=== PATIENT | female | born 1960 | race Caucasian/White ===

== ENCOUNTER 2019-02-07 09:17 | Day surgery (SDC) | payer BC ==
[~2019-02-07 09:17] MED LIST: ASPIRIN 325 MG TAB PO STA; SODIUM CHLORIDE 0.9% 1,000 ML in EMPTY BAG 1 BAG IV ONE; ceFAZolin IN SWFI 2 GM/20 ML SYRINGE IVP ONE
[2019-02-07] MEDS ORDERED: MIDAZOLAM 2 MG/2 ML VIAL IV ONE ×2 (10:46→11:02)
[2019-02-07] MEDS: fentaNYL (PF) 50 MCG/ML 2 ML AMP IV ONE ×2 (10:46→11:02)
[2019-02-07] MEDS ORDERED: LIDOCAINE 1% INJ 10MG/ML (20 ML MDV) SQ ONE (11:04)
[2019-02-07] MEDS ORDERED: HEPARIN SODIUM 1,000 UN/ML (10ML VL) IV ONE (11:13)
[2019-02-07] MEDS ORDERED: ALPRAZolam 0.25 MG TAB PO PRN (11:42)
[2019-02-07] MEDS ORDERED: SODIUM CHLORIDE 0.9% 1,000 ML IV SCH (11:45)
[2019-02-07] MEDS ORDERED: CLOPIDOGREL 75 MG TAB PO ONE (11:45)
[2019-02-07] MEDS ORDERED: IOPAMIDOL-250 50ML BTL IV ONE (11:46)
[2019-02-07] MEDS ORDERED: hydrALAZINE HCL 20 MG/ML 1 ML VIAL ONE (12:15)
--- NOTE | 2019-02-07 12:16 | LTR ---
DATE OF SERVICE: 02/07/2019 RE: Jostin Yvette Dear Dr. Kahn; Ms. Yvette Frankel underwent successful percutaneous closure of patent foramen ovale after she was diagnosed recently with TIA and was found to have PFO with [id number] shunt. Thank you for allowing us to participate in her care and please do not hesitate to call if you have any question or concerns. Sincerely, MD TIA Smith / VITO: [id number] /
[2019-02-07] MEDS ORDERED: hydrALAZINE HCL 20 MG/ML 1 ML VIAL IVP PRN (12:19)
--- NOTE | 2019-02-07 12:30 | PTCA ---
PERCUTANEOUSTRANS CORORONARY ANGIOGRAPHY STRUCTURAL HEART DISEASE REPORT DATE OF SERVICE: February 07, 2019 PERFORMING PHYSICIAN: Abdoul Mancini MD, management professor. PROCEDURE PERFORMED: 1. Intracardiac echocardiogram imaging. 2. Successful percutaneous closure of patent foramen ovale using 25 mm Amplatzer PFO occluder with excellent results and without any residual shunt. 3. Right atrial angiogram. INDICATION: This is a 59-year-old female patient who sees Dr. Bunch in the office as an outpatient. The patient recently was diagnosed with TIA and underwent transesophageal echocardiogram and that revealed small patent foramen ovale with [id number] shunt. Because of that, she was brought today to undergo a PFO closure. APPROACH: Right common femoral vein. COMPLICATION: None. LEVEL OF SEDATION: Moderate with sedation length of 40 minutes. PROCEDURE DESCRIPTION: After obtaining an informed consent, the patient was brought to the cardiac lab head. The right common femoral vein was cannulated x2. I did place two 8-Indonesian sheaths in the right common femoral vein. At that point, anticoagulation was initiated using heparin and the patient was given 6000 units of heparin IV. After that and under fluoroscopy guidance, I did advance the intracardiac echocardiogram probe. I did intracardiac echocardiogram imaging where I did start with the home view and interrogate the tricuspid valve as well as I interrogate the interatrial septum when I was able to identified the patent foramen ovale with right-to- left shunt and I measured the diameter of it, which was about 15 mm. At that point I did cross the patent foramen ovale using multipurpose catheter with 0.035 J-wire. The J-wire was advanced to the left upper pulmonary vein. After that I did exchange my 0.035 J wire into 0.035 stiff Amplatzer wire using multipurpose catheter. Subsequently, and after prepping the long sheath, I did exchange my 11 cm 8-Indonesian sheath into the Shuttle sheath. I did cross interatrial septum. After that, I did pull the dilator and wire out. Subsequently I did prep the 25 mm PFO Amplatzer occluder where initially it was attached to the cable, then it was loaded. After that, I did advance the Amplatzer device to the left atrium where the left atrial occluder was deployed first and subsequently, the right atrial occluder. Before I the device, I did some pulling and pushing on the cable to make sure that the device was stable enough. It was stable enough. Then I did color-flow to make sure there is no residual shunt. After that, we made sure that there is no pinch on the SVC. The procedure at that point was completed without any complication. Before I did complete the procedure, I did right atrial angiogram through the long sheath. Procedure at that point was completed after I did exchange my long sheath into short sheath. POSTPROCEDURE MANAGEMENT: 1. Dual antiplatelet therapy for 1 month. 2. Aspirin for 6 months. 3. Echocardiogram in 1 week, 1 month, and 6 months and 1 year as well. 4. Follow up with Dr. Bunch. MMSCOTTL / CLEMENTINEN: [id number] /
[2019-02-07] MEDS: ACETAMINOPHEN TAB 325 MG TAB PO PRN ×2 (16:18→21:46)
[2019-02-07 18:02] VITALS: BMI 33.5
[2019-02-07] MEDS ORDERED: DOCUSATE 100 MG CAP PO PRN (18:10)
[2019-02-07] MEDS: SYMBICORT 160-4.5 MCG INHALER INHALATION SCH (19:19)
[2019-02-07] MEDS: METOPROLOL TARTRATE 25 MG TAB PO SCH (21:46)
[2019-02-08 07:16] LABS: Basophils % (A) 0 %; Eosinophils # (A) 0.1 k/uL (0-0.7); Eosinophils % (A) 2 %; HCT 39.5 % (34.0-46.0); HGB 12.9 gm/dL (11.4-16.0); Lymphocytes # (A) 1.4 k/uL (1.0-4.8); Lymphocytes % (A) 24 %; MCH 28.3 pg (25.0-35.0); MCHC 32.6 g/dL (31.0-37.0); MCV 86.8 fL (80.0-100.0); Mean Platelet Volume 7.5; Monocytes # (A) 0.4 k/uL (0-1.0); Monocytes % (A) 6 %; Neutrophils # (A) 3.8 k/uL (1.3-7.7); Neutrophils % (A) 65 %; Platelet Count 254 k/uL (150-450); RBC 4.55 m/uL (3.80-5.40); WBC 5.9 k/uL (3.8-10.6)
[2019-02-08 07:39] LABS: Anion Gap 6 mmol/L; Blood Urea Nitrogen 14 mg/dL (7-17); Calcium 9.7 mg/dL (8.4-10.2); Carbon Dioxide 24 mmol/L (22-30); Chloride 110 mmol/L (98-107); Glucose 102 mg/dL (74-99); Potassium 4.1 mmol/L (3.5-5.1); Sodium 140 mmol/L (137-145)
--- NOTE | 2019-02-08 07:39 | XR ---
EXAMINATION TYPE: XR chest 2V DATE OF EXAM: 02/08/2019 COMPARISON: NONE HISTORY: COPD. ASD/PFO placement. TECHNIQUE: Frontal and lateral views of the chest are obtained. FINDINGS: Overlying EKG leads are seen. There is chronic parenchymal change without suspicious focal air space opacity, pleural effusion, or pneumothorax seen. The cardiac silhouette size is within nor mal limits. Atrial septal closure device is noted projecting over right posterior aspect of heart. T he osseous structures are intact. IMPRESSION: No acute cardiopulmonary process.
[2019-02-08 08:22] VITALS: BP 141/85; PULSE 87; RESP 18; TEMP 98.2
[2019-02-08] MEDS: SYMBICORT 160-4.5 MCG INHALER INHALATION SCH (08:49)
[2019-02-08] MEDS ORDERED: CLOPIDOGREL 75 MG TAB PO SCH (09:00)
[2019-02-08] MEDS ORDERED: MAGNESIUM OXIDE 400 MG TAB PO SCH (09:00)
[2019-02-08] MEDS ORDERED: FAMOTIDINE 20 MG TAB PO SCH (09:00)
[2019-02-08] MEDS ORDERED: NON-FORMULARY DRUG (Aspirin [Adult Low Dose Aspirin Ec] 81 MG) PO SCH (09:00)
[2019-02-08] MEDS ORDERED: ASPIRIN 325 MG TAB PO SCH (09:00)
[2019-02-08] MEDS ORDERED: TUMERIC PO SCH (09:00)
[2019-02-08] MEDS ORDERED: MONTELUKAST 10 MG TAB PO SCH (09:00)
[2019-02-08] MEDS ORDERED: ATORVASTATIN 20 MG TAB PO SCH (09:00)
[2019-02-08] MEDS: METOPROLOL TARTRATE 25 MG TAB PO SCH (09:10)
--- NOTE | 2019-02-08 11:03 | ECHOF ---
Referral Reason:Post ASD/PFO Insertion MEASUREMENTS -------- HEIGHT: 162.6 cm WEIGHT: 89.8 kg BP: 118/55 RVIDd: 3.5 cm (< 3.3) IVSd: 1.2 cm (0.6 - 1.1) LVIDd: 4.1 cm (3.9 - 5.3) LVPWd: 1.1 cm (0.6 - 1.1) IVSs: 1.4 cm LVIDs: 3.1 cm LVPWs: 1.4 cm LA Diam: 3.3 cm (2.7 - 3.8) MV EXCURSION: 20.130 mm (> 18.000) MV EF SLOPE: 71 mm/s (70 - 150) EPSS: 1.1 cm MV E Home: 0.68 m/s MV DecT: 254 ms MV A Home: 0.79 m/s MV E/A Ratio: 0.86 RAP: 5.00 mmHg RVSP: 26.52 mmHg FINDINGS -------- Sinus rhythm. This was a technically adequate study. The left ventricular size is normal. There is mild concentric left ventricular hypertrophy. Overa ll left ventricular systolic function is normal with, an EF between 55 - 60 %. The right ventricle is normal in size. The left atrial size is normal. The right atrial size is normal. There is an interatrial closure device in place without evidence of shunt. There is mild aortic valve sclerosis. There is no evidence of aortic regurgitation. Mild mitral annular calcification present. No mitral regurgitation. Mild tricuspid regurgitation present. There is no evidence of pulmonary hypertension. The right v entricular systolic pressure, as measured by Doppler, is 26.52mmHg. There is no pulmonic regurgitation present. The aortic root size is normal. There is no pericardial effusion. CONCLUSIONS -------- 1. The left ventricular size is normal. 2. There is mild concentric left ventricular hypertrophy. 3. Overall left ventricular systolic function is normal with, an EF between 55 - 60 %. 4. The right ventricle is normal in size. 5. The left atrial size is normal. 6. The right atrial size is normal. 7. There is an interatrial closure device in place without evidence of shunt. 8. There is mild aortic valve sclerosis. 9. Mild mitral annular calcification present. 10. No mitral regurgitation. 11. Mild tricuspid regurgitation present. 12. There is no evidence of pulmonary hypertension. 13. The right ventricular systolic pressure, as measured by Doppler, is 26.52mmHg. 14. There is no pulmonic regurgitation present. 15. The aortic root size is normal. 16. There is no pericardial effusion. PRIVATE BRANCH EXCHANGE INSTALLER: Kady Casillas RDCS
[2019-02-08] MEDS ORDERED: CHOLECALCIFEROL 1,000 UNIT TAB PO SCH (12:00)
--- NOTE | 2019-02-09 00:17 | DS ---
DISCHARGE SUMMARY . DATE OF ADMISSION: February 07, 2019 DATE OF DISCHARGE: February 08, 2019 BRIEF HISTORY: This is a very pleasant 59-year-old female patient who underwent yesterday successful percutaneous closure of patent foramen ovale using 25 mm Amplatzer septal occluder with an excellent angiographic results and without any complication. On follow up with her today, she is asymptomatic. The right groin is soft and nontender and without any bruises. The patient is going to be discharged home on dual anti-platelet therapy and I will follow up with her new in the office. MMODL / IJN: [id number] /
== END 2019-02-08 10:20 | disposition home or self-care (01) ==
LOC: CATHCVL 09:17 → 3SCARD 11:43 → CATHCVL 02-08 10:20
PROVIDERS: ATTEND Internal Medicine Interventional Cardiology
DX: Q21.1 Atrial septal defect (principal); I08.3 Combined rheumatic disorders of mitral, aortic and tricuspid valves; I47.1 Supraventricular tachycardia; Z86.73 Personal history of transient ischemic attack (TIA), and cerebral infarction without residual deficits; D86.9 Sarcoidosis, unspecified; Z72.0 Tobacco use; Z79.82 Long term (current) use of aspirin; Z79.51 Long term (current) use of inhaled steroids; Z79.52 Long term (current) use of systemic steroids; Z79.899 Other long term (current) drug therapy
CPT/HCPCS: 94640; 93306; 93581; 93662; 85347; 86900; 86901; 80048; 85025; 86850; 71046; C1769 ×4; C1894; C1817; C1759; J2250; J0360; J2001; J3010; J1644; J0690; Q9966

== ENCOUNTER → 2021-01-22 | Outpatient (CLI) | payer BC ==
[2021-01-22 14:41] LABS: HCT 39.2 % (34.0-46.0); HGB 13.8 gm/dL (11.4-16.0); MCH 30.7 pg (25.0-35.0); MCHC 35.1 g/dL (31.0-37.0); MCV 87.3 fL (80.0-100.0); Mean Platelet Volume 8.4; Platelet Count 225 k/uL (150-450); RBC 4.48 m/uL (3.80-5.40); RDW 12.7 % (11.5-15.5); WBC 5.9 k/uL (3.8-10.6)
[2021-01-22 14:57] LABS: INR 1.1 (<1.2); Partial Thromboplastin Time 23.4 sec (22.0-30.0); Prothrombin Time 11.1 sec (9.0-12.0)
[2021-01-22 14:58] LABS: ALT 24 U/L (4-34); AST 23 U/L (14-36); African American GFR (CKD) >90 (>60 ml/min/1.73 sqM); Albumin 4.9 g/dL (3.5-5.0); Alkaline Phosphatase 105 U/L (38-126); Anion Gap 9 mmol/L; Blood Urea Nitrogen 18 mg/dL (7-17); Calcium 10.3 mg/dL (8.4-10.2); Carbon Dioxide 28 mmol/L (22-30); Chloride 102 mmol/L (98-107); Glucose 103 mg/dL (74-99); Non-African American GFR(CKD) 86 (>60 ml/min/1.73 sqM); Potassium 4.7 mmol/L (3.5-5.1); Sodium 139 mmol/L (137-145); Total Bilirubin 0.4 mg/dL (0.2-1.3); Total Protein 7.5 g/dL (6.3-8.2)
[2021-01-22 15:07] LABS: Appearance,Urine Clear (Clear); Bilirubin,Urine Negative (Negative); Blood,Urine Small (Negative); Color,Urine Yellow; Glucose,Urine (UA) Negative (Negative); Ketones,Urine Negative (Negative); Leukocyte Esterase,Urine Large (Negative); Nitrite,Urine Negative (Negative); Protein,Urine Negative (Negative); RBC,Urine 3 /hpf (0-5); Specific Gravity,Urine 1.019 (1.001-1.035); Urobilinogen,Urine <2.0 mg/dL (<2.0); WBC,Urine 21 /hpf (0-5)
== END | disposition home or self-care (01) ==
LOC: LABPAT 14:13
PROVIDERS: ATTEND Orthopaedic Surgery
DX: Z01.812 Encounter for preprocedural laboratory examination (principal)
CPT/HCPCS: 36415; 80053; 81001; 85027; 85610; 85730; 87070

== ENCOUNTER 2021-02-02 07:38 | Day surgery (SDC) | payer BC ==
[2021-01-26 16:04] VITALS: BMI 34.3
[~2021-02-02 07:38] MED LIST changes: +ACETAMINOPHEN TAB 500 MG TAB PO PRN; -ASPIRIN 325 MG TAB PO STA; +DEXAMETHASONE SOD PHOSPHATE 4 MG/ML 1 ML VIAL IV ONE; +GABAPENTIN 300 MG CAP PO PRN; +HYDROmorphone 0.5 MG/0.5 ML SYRINGE IVP PRN; +LIDOCAINE 1% (10MG/ML) FOR IV START INTRADERMA PRN; +MELOXICAM 7.5 MG TAB PO PRN; +MIDAZOLAM 2 MG/2 ML VIAL IV PRN; +ONDANSETRON 4 MG/2 ML VIAL IVP ONE; +ROPIVACAINE/EPI/CLONIDINE/KET 50 ML SYRINGE MISCELLANE PRN; -SODIUM CHLORIDE 0.9% 1,000 ML in EMPTY BAG 1 BAG IV ONE; +TRANEXAMIC ACID 1,000 MG in SODIUM CHLORIDE 0.9% 100 ML IVPB PRN; -ceFAZolin IN SWFI 2 GM/20 ML SYRINGE IVP ONE
[2021-02-02] MEDS ORDERED: LACTATED RINGERS 1,000 ML IV ONE ×4 (08:10→11:01)
[2021-02-02] MEDS ORDERED: NALOXONE 0.4 MG/ML 1 ML VIAL IV PRN (08:34)
[2021-02-02] MEDS ORDERED: ONDANSETRON 4 MG/2 ML VIAL IVP PRN (08:34)
[2021-02-02] MEDS ORDERED: hydrOXYzine pamoate 25 MG CAP PO PRN (08:34)
[2021-02-02] MEDS ORDERED: HYDROmorphone 0.2 MG/1 ML SYRINGE IVP PRN (08:34)
[2021-02-02] MEDS ORDERED: HYDROmorphone 0.5 MG/0.5 ML SYRINGE IVP PRN (08:34)
[2021-02-02] MEDS ORDERED: MAGNESIUM HYDROXIDE 2,400 MG/10 ML CUP PO PRN (08:34)
[2021-02-02] MEDS ORDERED: HYDROmorphone 1 MG/ML 1 ML SYRINGE IVP PRN (08:34)
[2021-02-02] MEDS ORDERED: HYDROcodone/APAP 7.5-325MG 1 EACH TAB PO PRN (08:37)
[2021-02-02] MEDS ORDERED: fentaNYL (PF) 50 MCG/ML 2 ML AMP ONE (08:57)
[2021-02-02] MEDS ORDERED: PROPOFOL 10 MG/ML 20 ML VIAL IV ONE (08:57)
[2021-02-02] MEDS ORDERED: HEPARIN SODIUM,PORCINE 10,000 UNIT/ML 1 ML VIAL ONE (08:57)
[2021-02-02] MEDS ORDERED: SODIUM CHLORIDE 0.9% 100 ML BAG ONE (08:57)
[2021-02-02] MEDS ORDERED: SODIUM CHLORIDE 0.9% IRRIG 1,000 ML BTL IRRIGATION ONE (08:57)
[2021-02-02] MEDS ORDERED: PHENYLEPHRINE-0.9% NACL SYG 1,000 MCG/10 ML SYRINGE ONE (08:57)
[2021-02-02] MEDS ORDERED: MIDAZOLAM 2 MG/2 ML VIAL ONE (08:57)
[2021-02-02] MEDS ORDERED: TRANEXAMIC ACID 1,000 MG/10 ML VIAL ONE (08:57)
--- NOTE | 2021-02-02 10:16 | P.OP ---
Date of Procedure: 02/02/21 Preoperative Diagnosis: Severe osteoarthritis left hip Postoperative Diagnosis: Severe osteoarthritis left hip Procedure(s) Performed: Left total hip arthroplasty with a direct anterior approach Implants: [employer] Polarstem standard size 3 [employer] R3, 3 hole hemispherical acetabular shell, 52 mm [employer] Reflection 6.5 mm cancellus screw, 20 mm 2 [employer] R3, XLPE 20 acetabular liner [employer]hew Oxinium femoral head 36 m, -3 All components were press-fit. The articulation is Oxinium on polyethylene. Anesthesia: spinal Surgeon: Reyes Flores Marketing Project Specialist #1: Ct Lira Estimated Blood Loss (ml): 100 Pathology: other (Femoral head) Condition: stable Disposition: PACU Indications for Procedure: After failure of conservative treatment we discussed the surgical and nonsurgical treatment options at length. Patient wishes to proceed with a total hip arthroplasty with a direct anterior approach. Complications specific to this procedure were discussed at length, including but not limited to infection, leg length discrepancy, dislocation, nerve injury, and fracture. Covid-19 was also discussed at length with the patient, and they are aware of the current policies and procedures. The patient was given the option of delaying surgery, but they elect to proceed knowing these risks. Patient is aware of all these complications and informed consent was obtained Operative Findings: The operative findings are consistent with severe osteoarthritis of the left hip Description of Procedure: Patient was seen and evaluated in the preoperative area and the consent was reviewed. The operative site was marked with a skin marker. The patient was then brought to the operating room and given preoperative antibiotics i ntravenously. 1 g of Tranexamic acid was also given intravenously. A spinal anesthetic was administered by the anesthesia department. The patient was then placed on the Concrete table with the bony prominences well-padded. The hip area was then prepped with a ChloraPrep solution and draped in the usual sterile fashion. A universal timeout was then performed, which confirmed the patient's name, s urgical site, ALLERGIES, and procedure being performed on the consent. Next the incision site was located at 1 cm distal to the anterior superior iliac spine along the flexion crease of the hip. The skin and subcutaneous tissues were sharply incised. Incision was carefully dissected down to the fascia overlying the tensor fascia terrance muscle. This fascia was then incised in line with the incision. Care was taken to stay laterally in order to avoid injuring the lateral femoral cutaneous nerve. Next, using blunt finger dissection, the tensor fascia terrance muscle was dissected off its investing fascia. The muscle was then carefully retracted laterally with a cobra retractor over the lateral neck of the femur. Next, the circumflex vessels were identified and cauterized using the AquaMantis device. The anterior hip capsule was then exposed. The capsule was then opened and an inverted T fashion. Cobra retractors were then placed intracapsularly. The retractors were maintained intracapsular throughout the procedure. The proximal femur was then visualized. A small amount of traction was placed on the leg. The femoral neck was then osteotomized appropriate level above the lesser trochanter. A small wedge of bone was then removed from the remaining femoral head. Next, using a corkscrew the femoral head was removed from the acetabulum. On gross visual inspection, the femoral head had complete loss of articular cartilage and multiple periarticular osteophytes. The femoral head was then measured. Attention was then turned to the acetabulum. The acetabulum was exposed and any remaining labrum was excised. Sequential reaming of the acetabulum was performed using fluoroscopic guidance until there was a good bed of bleeding cancellus bone. When the appropriate size was reached, a trial was then placed. The position and fit of the trial was checked with fluoroscopy. The trial was then removed. Then, using fluoroscopic guidance, the final implant was impacted at 20 of anteversion and 40 of abduction, and fully seated in the acetabulum. 2 screws were then placed in the acetabulum. Again fluoroscopy was used to check position of the screws. Next, the liner was then impacted, with a 20 elevated liner located in the anterior superior quadrant. Component locking was confirmed. Attention was then directed to the femur. With the aid of the Concrete table, the femur was externally rotated to approximately 130, extended, and adducted under the opposite leg. A side hook was then placed under the proximal femur, and the side hook elevator was used to elevate the proximal femur while releasing the capsule. Retractors were then placed. A capsular release was performed, as well as a release of the conjoined tendon, which afforded excellent visualizati on of the proximal femur. Next, a box osteotome was used to lateralize the proximal femur. A fretted instrument maker hand was then used to locate the femoral canal. Sequential broaching was then performed with appropriate size which afforded excellent fixation in the proximal femur. A trial was then placed with appropriate head and neck, and the hip was gently reduced with the aid of the Concrete table. Fluoroscopy was then used to check position of the components, as well as to ensure equal leg lengths. The hip was then gently dislocated and the trials were then removed. Final implants were then impacted and the hip was again reduced. Final fluoroscopic x-rays confirmed that the components were in anatomic position, as well as equal leg lengths. The hip was also taken through range of motion, and found to be stable. The hip was then copiously irrigated with antibiotic solution with pulsatile lavage. The hip was then irrigated with Irrisept solution. The soft tissues were then injected with a ropivacaine solution, which consisted of 246.25 mg of ropivacaine, 0.5 mg of epinephrine, 30 mg of Toradol, 80 g of clonidine, and 48.45 mL of sterile water, for a total of 100 mL of fluid injected. A second dose of 1 g of Tranexamic acid was also given intravenously. Any blood collected by Cell Saver was then returned to the patient at this time. The fascia was then closed with 2-0 strata fix suture. The subcutaneous tissue was closed with 3-0 Vicryl. The subcuticular tissue was closed with 3-0 strata fix suture. The skin was then closed with Exofin skin glue. After the glue and dried, and Optifoam silver impregnated dressing was applied. The patient was then transferred to the recovery room in stable condition. The retail assistant store manager SANDRA Montes was required due to the complexity of surgery, and the need for skilled surgical brace maker for positioning, draping, exposure, retraction, and closure of the wound.
[2021-02-02] MEDS ORDERED: diphenhydrAMINE 50 MG/ML 1 ML VIAL IVP ONE (10:56)
--- NOTE | 2021-02-02 11:01 | FL ---
EXAMINATION TYPE: FL guidance operating room, XR Hip Limited LT DATE OF EXAM: 02/02/2021 CLINICAL HISTORY: Left hip pain and osteoarthritis. TECHNIQUE: Fluoroscopy. Intraoperative limited views left hip. COMPARISON: None. FINDINGS: Fluoroscopic guidance was provided during left hip replacement procedure performed by Dr. Flores. A total of 25 seconds of fluoroscopic time was utilized during the procedure and 2 spot im ages was acquired. Intraoperative images obtained show metallic hardware from total left hip arthroplasty satisfactory i n position on frontal projection. IMPRESSION: As Above.
--- NOTE | 2021-02-02 11:37 | XR ---
EXAMINATION TYPE: XR Hip Limited LT DATE OF EXAM: 02/02/2021 CLINICAL HISTORY: Left hip pain and osteoarthritis. TECHNIQUE: Single AP portable view of left hip is obtained immediately postoperatively. COMPARISON: None. FINDINGS: Metallic hardware from left hip arthroplasty is seen and appears satisfactory in alignment and position. There is evidence of recent surgery with subcutaneous gas noted laterally. IMPRESSION: Metallic hardware from left hip arthroplasty is satisfactory in position.
[2021-02-02 12:15] VITALS: RESP 18
[2021-02-02] MEDS: SODIUM CHLORIDE 0.9% 1,000 ML IV SCH (12:34)
[2021-02-02] MEDS: LACTATED RINGERS 1,000 ML IV SCH (14:28)
[2021-02-02] MEDS ORDERED: ALPRAZolam 0.25 MG TAB PO PRN (15:09)
[2021-02-02] MEDS ORDERED: ALBUTEROL HFA INHALER INHALATION PRN (15:09)
[2021-02-02] MEDS ORDERED: CYCLOBENZAPRINE 5 MG TAB PO PRN (15:09)
[2021-02-02] MEDS ORDERED: ALBUTEROL NEBULIZED 2.5 MG/3 ML INHALATION PRN (15:09)
[2021-02-02] MEDS: SYMBICORT 160-4.5 MCG INHALER INHALATION SCH (16:12)
[2021-02-02] MEDS: HYDROcodone/APAP 7.5-325MG 1 EACH TAB PO PRN (17:18)
--- NOTE | 2021-02-02 20:59 | P.CONS ---
History of Present Illness - Reason for Consult Consult date: 02/02/21 medical management Requesting physician: Reyes Flores - History of Present Illness This is a pleasant 60 [address] Kahn with underlying history of asthma, copd gerd tia Htpertension, Mi in past with svt, admitted to the service of dr Flores for eletive left hip arthroplasty on 02/02/2021. she di well postoperatively without any significant problems, vitals are stable no nausea or chest pain or palpitation. she follows with cardiology for dvt no current symptomatology. post op pain management with opiates, and currently on gabapentin chronically Review of Systems Constitutional: Reports as per HPI, Denies anorexia, Denies chills, Denies chronic headaches, Denies chronic pain, Denies daytime sleepiness, Denies fatigue, Denies fever, Denies lethargy, Denies malaise, Denies night sweats, Denies poor appetite, Denies sweats, Denies weakness, Denies weight gain, Denies weight loss Ears, nose, mouth and throat: Reports as per HPI, Denies ant. neck pain, Denies bleeding gums, Denies dental pain, Denies dysphagia, Denies epistaxis, Denies headache, Denies hoarseness, Denies mouth pain, Denies nasal congestion, Denies nasal discharge, Denies neck fullness/pressure, Denies neck lump, Denies nose pain, Denies odynophagia, Denies post-nasal drip, Denies sinus pain, Denies sinus pressure, Denies swelling in mouth, Denies swelling in throat, Denies sore throat, Denies vertigo, Denies voice changes Cardiovascular: Reports as per HPI Respiratory: Reports as per HPI, Denies congestion, Denies cough, Denies cough with sputum, Denies dyspnea, Denies excessive sputum, Denies hemoptysis, Denies home oxygen, Denies pain, Denies pain on inspiration, Denies pleurisy, Denies respiratory infections, Denies sleep apnea, Denies snoring, Denies wheezing Gastrointestinal: Reports as per HPI, Denies abdominal pain, Denies belching, Denies bloating, Denies BRBPR, Denies change in bowel habits, Denies coffee ground emesis, Denies constipation, Denies diarrhea, Denies dyspepsia, Denies early satiety, Denies excessive gas, Denies heartburn, Denies hematemesis, Denies hematochezia, Denies indigestion, Denies jaundice, Denies lactose intolerance, Denies loss of appetite, Denies melena, Denies nausea, Denies vomiting Genitourinary: Reports as per HPI, Denies abnormal vaginal bleeding, Denies decreased libido, Denies difficulty conceiving, Denies difficulty voiding, Denies dysmenorrhea, Denies dyspareunia, Denies dysuria, Denies flank pain, Denies genital sores, Denies hematuria, Denies hot flashes, Denies incomplete emptying, Denies kidney stones, Denies menorrhagia, Denies mixed incontinence, Denies nocturia, Denies pelvic pain, Denies post void dribbling, Denies , Denies prolapse symptoms, Denies stress incontinence, Denies urge incontinence, Denies urgency, Denies urinary frequency, Denies vaginal disc harge, Denies vaginal dryness, Denies vaginal itching, Denies vaginal odor Menstruation: Reports as per HPI Musculoskeletal: Reports as per HPI, Reports limitation of motion Integumentary: Denies lesions, Denies rash Neurological: Reports as per HPI, Reports balance difficulties, Reports gait dysfunction, Denies lack of coordination, Denies sensory deficit, Denies spasticity, Denies weakness Psychiatric: Reports as per HPI, Denies disorientation, Denies insomnia, Denies memory loss Past Medical History Past Medical History: Asthma, COPD, CVA/TIA, GERD/Reflux, Hyperlipidemia, Hypertension, Myocardial Infarction ([place]), Osteoarthritis (OA), Supraventricular Tachycardia (SVT) Additional Past Medical History / Comment(s): hx of TIA's-no residual effects, will have an issue w/SVT if gets anxious or worked up, pulmonary sarcoidosis, lots of allergies, currently on antibiotic for UTI Last Myocardial Infarction Date:: unknown History of Any Multi-Drug Resistant Organisms: None Reported Past Surgical History: Orthopedic Surgery Additional Past Surgical History / Comment(s): MUMTAZ, CAVAZOS'S NEUROMA REMOVED RT FOOT, SINUS SX, TUBES IN EARS, LUNG BX, PFO closure Past Anesthesia/Blood Transfusion Reactions: No Reported Reaction, Family History of Problems w/ Anesthesia Additional Past Anesthesia/Blood Transfusion Reaction / Comm: sister stopped breathing during a surgery-not sure why-she had lots of health problems per pt. Smoking Status: Former smoker - Past Family History Mother Family Medical History: Cancer, Osteoarthritis (OA) Additional Family Medical History / Comment(s): COLON Sister(s) Family Medical History: Deep Vein Thrombosis (DVT), Pulmonary Embolus Medications and Allergies Home Medications Medication Instructions Recorded Confirmed Type ALPRAZolam [Xanax] 0.25 mg PO BID PRN #0 02/01/19 01/26/21 History Aspirin [Adult Low Dose Aspirin EC] 81 mg PO DAILY 02/01/19 01/26/21 History Budesonide-Formot 160-4.5 Mcg 2 puff INHALATION BID 02/01/19 01/26/21 History [Symbicort 160-4.5 Mcg Inhaler] Cholecalciferol [Vitamin D3 (25 5,000 unit PO DAILY 02/01/19 01/26/21 History Mcg = 1000 Iu)] Famotidine [Pepcid] 20 mg PO DAILY #0 02/01/19 01/26/21 History Magnesium 200 mg PO DAILY #0 02/01/19 01/26/21 History Metoprolol Tartrate [Lopressor] 25 mg PO BID #0 02/01/19 01/26/21 History Montelukast [Singulair] 10 mg PO DAILY 02/01/19 01/26/21 History Atorvastatin [Lipitor] 20 mg PO Q48H 02/07/19 01/26/21 History Albuterol Nebulized [Ventolin 2.5 mg INHALATION Q6H PRN 01/26/21 01/26/21 History Nebulized] Albuterol Sulfate [Proair Hfa] 1 - 2 puff INHALATION Q6HR PRN 01/26/21 01/26/21 History Cholecalciferol [Vitamin D3 (25 25 mcg PO DAILY 01/26/21 01/26/21 History Mcg = 1000 Iu)] Cyclobenzaprine [Flexeril] 5 mg PO TID PRN 01/26/21 01/26/21 History Fluticasone Nasal [place] [Flonase 2 spr EA NOSTRIL DAILY 01/26/21 01/26/21 History Nasal [place]] Gabapentin [Neurontin] 100 mg PO DAILY 01/26/21 01/26/21 History HYDROcodone/APAP 5-325MG [[place] 1 tab PO Q6HR PRN 01/26/21 01/26/21 History 5-325] Multivitamins, Thera [Multivitamin 1 tab PO DAILY 01/26/21 01/26/21 History (formulary)] Nitrofurantoin Macrocrystal 100 mg PO BID 01/26/21 01/26/21 History [Nitrofurantoin] Zinc 50 mg PO DAILY 01/26/21 01/26/21 History Aspirin 325 mg PO BID #60 tab 02/02/21 Rx HYDROcodone/APAP 7.5-325MG [[place] 1 - 2 tab PO Q6H PRN #32 tab 02/02/21 Rx 7.5-325] Sennosides [Senokot] 2 tab PO DAILY PRN #60 tablet 02/02/21 Rx Allergies Allergy/AdvReac Type Severity Reaction Status Date / Time adhesive tape Allergy Rash/Hives Verified 01/26/21 15:52 Physical Exam Vitals: Vital Signs Temp Pulse Resp BP BP Pulse Ox 02/02/21 14:00 73 131/83 02/02/21 13:30 74 131/86 02/02/21 13:00 74 118/78 02/02/21 12:45 78 107/78 02/02/21 12:30 76 121/85 02/02/21 12:15 97.5 F L 71 18 124/76 98 02/02/21 11:30 70 16 109/64 99 02/02/21 11:15 66 16 116/63 98 02/02/21 11:00 73 16 106/57 95 02/02/21 10:45 68 14 108/57 96 02/02/21 10:38 96.9 F L 74 12 115/56 100 02/02/21 08:09 97.8 F 77 18 159/94 97 Intake and Output 02/02/21 02/02/21 02/02/21 06:59 14:59 22:59 Intake Total 2149 1130 Output Total 100 Balance 2049 113 Intake: IV 2150 Oral 1130 Output: Estimated Blood Loss 100 Other: Voiding Method Toilet Toilet # Voids 1 Weight 92.3 kg - Constitutional General appearance: average body habitus, cooperative, no acute distress - EENT Eyes: PERRLA, dentition normal ENT: hearing grossly normal, NA/AT, normal oropharynx - Neck Neck: normal ROM - Respiratory Respiratory: bilateral: CTA, negative: diminished, dullness, rales - Cardiovascular Rhythm: regular Heart sounds: normal: S1, S2 Abnormal Heart Sounds: no systolic murmur, no diastolic murmur, no rub, no S3 Gallop, no S4 Gallop, no click, no other - Gastrointestinal General gastrointestinal: normal bowel sounds, soft - Integumentary Integumentary: normal, normal turgor - Neurologic Neurologic: CNII-XII intact - Musculoskeletal Musculoskeletal: strength equal bilaterally Assessment and Plan Plan: 1. left total hip arthorplast on 02/02/2021, POD #0, currently doing weel, post op pain medications, symptomatic relief, gi and dvt prophylaxis, pulmonary toileting, and incentive spirometry use and education. albs reviewed fro, last 01/22/2021. PT/ OT , deviceces for safety during ambulation ,check am labs 2/ asthma COPD without exacerbation on proventil 3. TIA hx on lipitor metoprolol, meds continued 4. svt hx controlled, metorolol 5. hx CAD 81 mg daily lipitor and metoprlol. not on marina inhibition 6. Asthma, and allergies, on singulair prn proventil gi prophylasxis dvt prophylaxis on aspririn 325 mg bid post discharge Thank you dr Flores in allowing us to participate in the care of your patient, we will follow her course with you during this hospital stay
[2021-02-02] MEDS ORDERED: SENNOSIDES-DOCUSATE SODIUM 1 EACH TAB PO SCH (21:00)
[2021-02-02] MEDS: FAMOTIDINE 20 MG TAB PO SCH (21:21)
[2021-02-02] MEDS: METOPROLOL TARTRATE 25 MG TAB PO SCH (21:21)
[2021-02-02] MEDS: ASPIRIN 325 MG TAB PO SCH (21:21)
[2021-02-03] MEDS: SODIUM CHLORIDE 0.9% 1,000 ML IV SCH (01:00)
[2021-02-03 05:23] VITALS: BP 121/79; PULSE 76; TEMP 98.1
[2021-02-03] MEDS: LACTATED RINGERS 1,000 ML IV SCH (05:38)
[2021-02-03] MEDS: HYDROcodone/APAP 7.5-325MG 1 EACH TAB PO PRN (06:28)
[2021-02-03 06:46] LABS: Basophils % (A) 0 %; Eosinophils # (A) 0.1 k/uL (0-0.7); Eosinophils % (A) 1 %; HGB 12.5 gm/dL (11.4-16.0); Lymphocytes # (A) 1.1 k/uL (1.0-4.8); Lymphocytes % (A) 12 %; MCH 30.3 pg (25.0-35.0); MCHC 34.8 g/dL (31.0-37.0); MCV 86.9 fL (80.0-100.0); Mean Platelet Volume 8.5; Monocytes # (A) 1.1 k/uL (0-1.0); Monocytes % (A) 12 %; Neutrophils % (A) 74 %; Platelet Count 197 k/uL (150-450); RBC 4.14 m/uL (3.80-5.40); RDW 12.2 % (11.5-15.5); WBC 9.4 k/uL (3.8-10.6)
[2021-02-03] MEDS: FAMOTIDINE 20 MG TAB PO SCH (07:57)
[2021-02-03] MEDS: METOPROLOL TARTRATE 25 MG TAB PO SCH (07:57)
[2021-02-03] MEDS: ASPIRIN 325 MG TAB PO SCH (07:58)
[2021-02-03] MEDS: SYMBICORT 160-4.5 MCG INHALER INHALATION SCH (08:48)
[2021-02-03] MEDS ORDERED: NON FORMULARY DRUG (Aspirin [Adult Low Dose Aspirin Ec] 81 MG Tablet.Dr) PO SCH (09:00)
[2021-02-03] MEDS ORDERED: FLUTICASONE 50MCG/SPRAY NASAL 16GM EA NOSTRIL SCH (09:00)
[2021-02-03] MEDS ORDERED: GABAPENTIN 100 MG CAP PO SCH (09:00)
[2021-02-03] MEDS ORDERED: MULTIVITAMINS, THERA 1 EACH TAB PO SCH (09:00)
[2021-02-03] MEDS ORDERED: MAGNESIUM OXIDE 400 MG TAB PO SCH (09:00)
[2021-02-03] MEDS ORDERED: MELOXICAM 7.5 MG TAB PO SCH (09:00)
[2021-02-03] MEDS ORDERED: MONTELUKAST 10 MG TAB PO SCH (09:00)
--- NOTE | 2021-02-03 09:32 | P.PN ---
Subjective Progress Note Date: 02/03/21 HISTORY OF PRESENT ILLNESS This is a pleasant 60 [address] Kahn with underlying history of asthma, copd gerd tia Hypertension, Mi in past with svt, admitted to the service of Dr. Flores for eletive left hip arthroplasty on 02/02/2021. she did well postoperatively without any significant problems, vitals are stable no nausea or chest pain or palpitation. she follows with cardiology for dvt no current symptomatology. post op pain management with opiates, and currently on g abapentin chronically. 02/03: Patient has been afebrile, heart rate 76, blood pressure 121/79, pulse ox 97% on room air. Hemoglobin is 12.5, WBC 9.4. Patient is utilizing incentive spirometry and reaching 1500 MLS. Pain is currently controlled but bad last night along with back pain. She is eating well with no nausea or vomiting. she is seen today resting in recliner in no distress. Orthopedics has seen patient this morning with plan for discharge today. REVIEW OF SYSTEMS Constitutional: No fever, no chills, no night sweats. No weight change. No weakness, fatigue or lethargy. No daytime sleepiness. EENT: No headache. No blurred vision or double vision, no loss of vision. No loss of Hearing, no ringing in the ears, no dizziness. No nasal drainage or congestion. No epistaxis. No sore throat. Lungs: No shortness of breath, cough, no sputum production. No wheezing. Cardiovascular: No chest pain, no lower extremity edema. No palpitations. No paroxysmal nocturnal dyspnea. No orthopnea. No lightheadedness or dizziness. No syncopal episodes. Abdominal: No abdominal pain. No nausea, vomiting. No diarrhea. No constipation. No bloody or tarry stools.. No loss of appetite. Genitourinary: No dysuria, increased frequency, urgency. No urinary retention. Musculoskeletal: No myalgias. No muscle weakness, no gait dysfunction, no frequent falls. No back pain. No neck pain. No discomfort to the left hip. Integumentary: No wounds, no lesions. No rash or pruritus. No unusual bruising. No change in hair or nails. Neurologic: No aphasia. No facial droop. No change in mentation. No head injury. No headache. No paralysis. No paresthesia. Psychiatric: No depression. No anxiety. No mood swings. Endocrine: No abnormal blood sugars. No weight change. No excessive sweating or thirst. No cold intolerance. PHYSICAL EXAMINATION Gen: This is a 60-year-old female. Patient is resting in recliner and appears to be comfortable and in no acute distress. HEENT: Head is atraumatic, normocephalic. Pupils equal, round. Sclerae is anicteric. NECK: Supple. No JVD. No lymphadenopathy. No thyromegaly. LUNGS: Clear to auscultation. No wheezes or rhonchi. No intercostal retractions. HEART: Regular rate and rhythm. No murmur. ABDOMEN: Soft. Bowel sounds are present. No masses. No tenderness. EXTREMITIES: No pedal edema. No calf tenderness. Dressing in place to the left hip. No breakthrough bleeding or drainage. NEUROLOGICAL: Patient is awake, alert and oriented x3. Cranial nerves 2 through 12 are grossly intact. ASSESSMENT AND PLAN 1. left total hip arthorplast on 02/02/2021, POD #1, currently doing well, post op pain medications, gi and dvt prophylaxis, pulmonary toileting, and incentive spirometry use and education. albs reviewed fro, last 01/22/2021. PT/ OT , devic eces for safety during ambulation ,check am labs. Medication reconciliation will be completed. Patient to continue incentive spirometry at home. 2. Mild intermittent asthma without exacerbation. Continue proventil 3. History of TIA. Continue lipitor metoprolol, meds continued 4. History of svt. Continue metorolol 5. CAD 81 mg daily lipitor and metoprlol. not on marina inhibition 6. Seasonal allergies, on singulair prn proventil gi prophylasxis dvt prophylaxis on aspririn 325 mg bid post discharge COVID-19 testing negative. Patient has been hospitalized during a pandemic. DISCHARGE PLAN Home with [facility]. Impression and plan of care have been directed as dictated by the signing physician. Marion Koehler nurse practitioner acting as scribe for signing physician. Objective - Vital Signs Vital signs: Vital Signs Temp 98.1 F 02/03/21 04:57 Pulse 76 02/03/21 04:57 Resp 18 02/02/21 12:15 BP 121/79 02/03/21 04:57 Pulse Ox 97 04/13/21 04:57 Intake & Output 02/02/21 02/03/21 02/03/21 18:59 06:59 18:59 Intake Total 2690 1520 Output Total 100 Balance 2590 1520 Weight 92.3 kg Intake: IV 2150 Intake, IV Titration 680 Amount Sodium Chloride 0.9% 1, 630 000 ml @ 70 mls/hr IV . [id number] KHANH Rx#:[id number] ceFAZolin 2 gm In Sodium 50 Chloride 0.9% 50 ml @ 100 mls/hr IVPB Q8H [facility] Rx#: [id number] Oral 540 840 Output: Estimated Blood Loss 100 Other: Voiding Method Toilet Toilet # Voids 2 1 - Labs CBC & Chem 7: 02/03/21 05:35 Labs: Abnormal Lab Results - Last 24 Hours (Table) 02/03/21 Range/Units 05:35 Monocytes # 1.1 H (0-1.0) k/uL
--- NOTE | 2021-02-03 09:32 | P.DS ---
Providers Expected date of discharge: 02/03/21 Attending physician: Reyes Flores Consults: 02/02/21 08:34 Consult Physician Routine Consulting Provider: Victor Manuel Salgado Reason/Comments: medical management Do you want consulting provider notified?: Yes Primary care physician: Mg Villaseñor ayesha [facility] Course: This is a 60-year-old female with known history of degenerative arthritis of the left hip. The patient presented for evaluation as an outpatient. After discussion and consideration patient elects to proceed with total hip arthroplasty. The patient is seen preoperatively by Dr. Flores and medically cleared for surgery by their primary care physician. Patient is admitted to [facility] on 02/02/2021 for total hip arthroplasty. The procedure is performed without complication or sequelae. The patient is doing well postoperatively. Labs and vital signs are stable on day of discharge. On day of discharge patient's hip incision is healing well. There is minimal erythema. There is no drainage noted at this time. There is minimal soft tissue swelling to the hip and thigh. Patient has full foot and ankle motion without difficulty or pain. Calf is soft and nontender to palpation. Neurovascular status to the left lower extremity is intact. Patient is discharged home in good condition. Opioid start talking form is reviewed and signed. Please see med rec for accurate list of home medications. Plan - Discharge Summary Discharge Rx Participant: Yes New Discharge Prescriptions: New HYDROcodone/APAP 7.5-325MG [[place] 7.5-325] 1 - 2 tab PO Q6H PRN #32 tab PRN Reason: Pain Sennosides [Senokot] 2 tab PO DAILY PRN #60 tablet PRN Reason: Constipation Aspirin 325 mg PO BID #60 tab No Action Montelukast [Singulair] 10 mg PO DAILY Cholecalciferol [Vitamin D3 (25 Mcg = 1000 Iu)] 5,000 unit PO DAILY Budesonide-Formot 160-4.5 Mcg [Symbicort 160-4.5 Mcg Inhaler] 2 puff INHALATION BID Aspirin [Adult Low Dose Aspirin EC] 81 mg PO DAILY Metoprolol Tartrate [Lopressor] 25 mg PO BID #0 Magnesium 200 mg PO DAILY #0 Famotidine [Pepcid] 20 mg PO DAILY #0 ALPRAZolam [Xanax] 0.25 mg PO BID PRN #0 PRN Reason: Anxiety Atorvastatin [Lipitor] 20 mg PO Q48H Multivitamins, Thera [Multivitamin (formulary)] 1 tab PO DAILY Cholecalciferol [Vitamin D3 (25 Mcg = 1000 Iu)] 25 mcg PO DAILY Albuterol Sulfate [Proair Hfa] 1 - 2 puff INHALATION Q6HR PRN PRN Reason: Shortness Of Breath Cyclobenzaprine [Flexeril] 5 mg PO TID PRN PRN Reason: Muscle Spasm Nitrofurantoin Macrocrystal [Nitrofurantoin] 100 mg PO BID Albuterol Nebulized [Ventolin Nebulized] 2.5 mg INHALATION Q6H PRN PRN Reason: Shortness Of Breath Gabapentin [Neurontin] 100 mg PO DAILY Fluticasone Nasal Roxie [Flonase Nasal Roxie] 2 spr EA NOSTRIL DAILY HYDROcodone/APAP 5-325MG [[place] 5-325] 1 tab PO Q6HR PRN PRN Reason: Pain Zinc 50 mg PO DAILY Discharge Medication List ALPRAZolam [Xanax] 0.25 mg PO BID PRN #0 02/01/19 [History] Aspirin [Adult Low Dose Aspirin EC] 81 mg PO DAILY 02/01/19 [History] Budesonide-Formot 160-4.5 Mcg [Symbicort 160-4.5 Mcg Inhaler] 2 puff INHALATION BID 02/01/19 [History] Cholecalciferol [Vitamin D3 (25 Mcg = 1000 Iu)] 5,000 unit PO DAILY 02/01/19 [History] Famotidine [Pepcid] 20 mg PO DAILY #0 02/01/19 [History] Magnesium 200 mg PO DAILY #0 02/01/19 [History] Metoprolol Tartrate [Lopressor] 25 mg PO BID #0 02/01/19 [History] Montelukast [Singulair] 10 mg PO DAILY 02/01/19 [History] Atorvastatin [Lipitor] 20 mg PO Q48H 02/07/19 [History] Albuterol Nebulized [Ventolin Nebulized] 2.5 mg INHALATION Q6H PRN 01/26/21 [History] Albuterol Sulfate [Proair Hfa] 1 - 2 puff INHALATION Q6HR PRN 01/26/21 [History] Cholecalciferol [Vitamin D3 (25 Mcg = 1000 Iu)] 25 mcg PO DAILY 01/26/21 [History] Cyclobenzaprine [Flexeril] 5 mg PO TID PRN 01/26/21 [History] Fluticasone Nasal Roxie [Flonase Nasal Roxie] 2 spr EA NOSTRIL DAILY 01/26/21 [History] Gabapentin [Neurontin] 100 mg PO DAILY 01/26/21 [History] HYDROcodone/APAP 5-325MG [[place] 5-325] 1 tab PO Q6HR PRN 01/26/21 [History] Multivitamins, Thera [Multivitamin (formulary)] 1 tab PO DAILY 01/26/21 [History] Nitrofurantoin Macrocrystal [Nitrofurantoin] 100 mg PO BID 01/26/21 [History] Zinc 50 mg PO DAILY 01/26/21 [History] Aspirin 325 mg PO BID #60 tab 02/02/21 [Rx] HYDROcodone/APAP 7.5-325MG [[place] 7.5-325] 1 - 2 tab PO Q6H PRN #32 tab 02/02/21 [Rx] Sennosides [Senokot] 2 tab PO DAILY PRN #60 tablet 02/02/21 [Rx] Follow up Appointment(s)/Referral(s): [facility], [NON-STAFF] - As Needed Reyes Flores DO [Doctor of Osteopathic Medicine] - 1 Week Activity/Diet/Wound Care/Special Instructions: Weightbearing as tolerated with walker. Leave dressing intact. Dressing may be removed by home care nurse or by patient in 10 days. May shower with dressing on. Please take aspirin 325mg twice daily for 30 days to prevent blood clots. Recommend use of compression stockings daily until follow up to help prevent swelling and blood clots. May remove at night before sleeping. Please follow-up with [facility] in 2 weeks and call with any questions or concerns, . Discharge Disposition: HOME WITH HOME HEALTH SERVICES
[2021-02-04] MEDS ORDERED: ATORVASTATIN 20 MG TAB PO SCH (09:00)
== END 2021-02-03 11:22 | disposition home health service (06) ==
LOC: OR 07:38 → 5NMEDONC 11:13 → OR 02-03 11:22
PROVIDERS: ATTEND Orthopaedic Surgery
DX: M16.12 Unilateral primary osteoarthritis, left hip (principal); M25.752 Osteophyte, left hip; I10 Essential (primary) hypertension; E78.00 Pure hypercholesterolemia, unspecified; E78.5 Hyperlipidemia, unspecified; I47.1 Supraventricular tachycardia; D86.0 Sarcoidosis of lung; M51.9 Unspecified thoracic, thoracolumbar and lumbosacral intervertebral disc disorder; F41.9 Anxiety disorder, unspecified; J44.9 Chronic obstructive pulmonary disease, unspecified; K21.9 Gastro-esophageal reflux disease without esophagitis; I25.2 Old myocardial infarction; J45.20 Mild intermittent asthma, uncomplicated; G62.9 Polyneuropathy, unspecified; N39.0 Urinary tract infection, site not specified; Z20.822 Contact with and (suspected) exposure to COVID-19; Z79.899 Other long term (current) drug therapy; Z97.3 Presence of spectacles and contact lenses; Z87.11 Personal history of peptic ulcer disease; Z91.09 Other allergy status, other than to drugs and biological substances; Z98.890 Other specified postprocedural states; Z87.891 Personal history of nicotine dependence; Z79.1 Long term (current) use of non-steroidal anti-inflammatories (NSAID); Z79.52 Long term (current) use of systemic steroids; Z79.891 Long term (current) use of opiate analgesic; Z79.82 Long term (current) use of aspirin; Z87.39 Personal history of other diseases of the musculoskeletal system and connective tissue; Z86.73 Personal history of transient ischemic attack (TIA), and cerebral infarction without residual deficits; Z87.74 Personal history of (corrected) congenital malformations of heart and circulatory system; Z83.3 Family history of diabetes mellitus; Z84.89 Family history of other specified conditions; Z82.49 Family history of ischemic heart disease and other diseases of the circulatory system; Z82.3 Family history of stroke; Z80.0 Family history of malignant neoplasm of digestive organs; Z80.9 Family history of malignant neoplasm, unspecified; Z82.61 Family history of arthritis; Z82.5 Family history of asthma and other chronic lower respiratory diseases; Z83.518 Family history of other specified eye disorder; Z83.42 Family history of familial hypercholesterolemia
CPT/HCPCS: 27130; 97110; 97161; 97535; 97165; 86891; 85025; 88300; 87635; 73501; C1776; J2250; J1200; J1644; J1100; J0690 ×2; J2405; J3010; J1170; J2370; J2704; 86850; 86900; 86901

== ENCOUNTER → 2021-07-31 | Outpatient (CLI) | payer BC ==
[2021-07-31 13:39] LABS: Basophils % (A) 0 %; Eosinophils # (A) 0.3 k/uL (0-0.7); Eosinophils % (A) 5 %; HCT 41.7 % (34.0-46.0); HGB 13.7 gm/dL (11.4-16.0); Lymphocytes # (A) 0.4 k/uL (1.0-4.8); Lymphocytes % (A) 6 %; MCH 29.2 pg (25.0-35.0); MCHC 32.8 g/dL (31.0-37.0); MCV 88.9 fL (80.0-100.0); Mean Platelet Volume 8.3; Monocytes # (A) 0.3 k/uL (0-1.0); Monocytes % (A) 4 %; Neutrophils # (A) 5.7 k/uL (1.3-7.7); Neutrophils % (A) 84 %; Platelet Count 214 k/uL (150-450); RBC 4.68 m/uL (3.80-5.40); RDW 12.4 % (11.5-15.5); WBC 6.7 k/uL (3.8-10.6)
--- NOTE | 2021-07-31 13:42 | XR ---
EXAMINATION TYPE: XR chest 2V DATE OF EXAM: 07/31/2021 COMPARISON: 02/08/2019 TECHNIQUE: PA and lateral views submitted. HISTORY: Preop FINDINGS: The lungs are clear and there is no pneumothorax, pleural effusion, or focal pneumonia. Heart size normal. No overt failure. Arthropathy of the shoulders. Hypertrophic and degenerative change of the s pine. Suggestion of previous cardiac surgery. There is a stable 7 mm nodule along the lateral margin of the right lower lobe. Given stability over time over the course of 2 years is likely represents a small granuloma. IMPRESSION: 1. No acute process.
[2021-07-31 13:53] LABS: ALT 29 U/L (4-34); AST 28 U/L (14-36); African American GFR (CKD) >90 (>60 ml/min/1.73 sqM); Albumin 4.4 g/dL (3.5-5.0); Alkaline Phosphatase 98 U/L (38-126); Anion Gap 9 mmol/L; Blood Urea Nitrogen 11 mg/dL (7-17); Calcium 10.1 mg/dL (8.4-10.2); Carbon Dioxide 25 mmol/L (22-30); Chloride 105 mmol/L (98-107); Glucose 126 mg/dL (74-99); Non-African American GFR(CKD) 85 (>60 ml/min/1.73 sqM); Potassium 4.1 mmol/L (3.5-5.1); Sodium 139 mmol/L (137-145); Total Bilirubin 0.8 mg/dL (0.2-1.3)
[2021-07-31 13:54] LABS: Partial Thromboplastin Time 23.1 sec (22.0-30.0); Prothrombin Time 10.7 sec (9.0-12.0)
[2021-07-31 14:25] LABS: Appearance,Urine Clear (Clear); Bacteria,Urine Rare /hpf; Bilirubin,Urine Negative (Negative); Blood,Urine Negative (Negative); Color,Urine Yellow; Glucose,Urine (UA) Negative (Negative); Ketones,Urine Negative (Negative); Leukocyte Esterase,Urine Moderate (Negative); Nitrite,Urine Negative (Negative); PH, Urine 6.5 (5.0-8.0); Protein,Urine Negative (Negative); Specific Gravity,Urine 1.004 (1.001-1.035); Squamous Epithelial Cell,Urine <1 /hpf (0-4); Urobilinogen,Urine <2.0 mg/dL (<2.0); WBC,Urine 7 /hpf (0-5)
== END | disposition home or self-care (01) ==
LOC: LABPAT 12:54
PROVIDERS: ATTEND Orthopaedic Surgery Orthopaedic Surgery of the Spine
DX: Z01.818 Encounter for other preprocedural examination (principal); M43.10 Spondylolisthesis, site unspecified; M48.061 Spinal stenosis, lumbar region without neurogenic claudication
CPT/HCPCS: 71046; 80053; 81001; 85025; 85610; 85730; 86850; 86900; 86901; 87070

== ENCOUNTER 2021-08-10 06:16 | Observation (INO) | payer BC ==
[2021-07-31 13:39] LABS: Basophils % (A) 0 %; Eosinophils # (A) 0.3 k/uL (0-0.7); Eosinophils % (A) 5 %; HCT 41.7 % (34.0-46.0); HGB 13.7 gm/dL (11.4-16.0); Lymphocytes # (A) 0.4 k/uL (1.0-4.8); Lymphocytes % (A) 6 %; MCH 29.2 pg (25.0-35.0); MCHC 32.8 g/dL (31.0-37.0); MCV 88.9 fL (80.0-100.0); Mean Platelet Volume 8.3; Monocytes # (A) 0.3 k/uL (0-1.0); Monocytes % (A) 4 %; Neutrophils # (A) 5.7 k/uL (1.3-7.7); Neutrophils % (A) 84 %; Platelet Count 214 k/uL (150-450); RBC 4.68 m/uL (3.80-5.40); RDW 12.4 % (11.5-15.5); WBC 6.7 k/uL (3.8-10.6)
[2021-07-31 13:53] LABS: ALT 29 U/L (4-34); AST 28 U/L (14-36); African American GFR (CKD) >90 (>60 ml/min/1.73 sqM); Albumin 4.4 g/dL (3.5-5.0); Alkaline Phosphatase 98 U/L (38-126); Anion Gap 9 mmol/L; Blood Urea Nitrogen 11 mg/dL (7-17); Calcium 10.1 mg/dL (8.4-10.2); Carbon Dioxide 25 mmol/L (22-30); Chloride 105 mmol/L (98-107); Glucose 126 mg/dL (74-99); Non-African American GFR(CKD) 85 (>60 ml/min/1.73 sqM); Potassium 4.1 mmol/L (3.5-5.1); Sodium 139 mmol/L (137-145); Total Bilirubin 0.8 mg/dL (0.2-1.3)
[2021-07-31 13:54] LABS: Partial Thromboplastin Time 23.1 sec (22.0-30.0); Prothrombin Time 10.7 sec (9.0-12.0)
[2021-07-31 14:25] LABS: Appearance,Urine Clear (Clear); Bacteria,Urine Rare /hpf; Bilirubin,Urine Negative (Negative); Blood,Urine Negative (Negative); Color,Urine Yellow; Glucose,Urine (UA) Negative (Negative); Ketones,Urine Negative (Negative); Leukocyte Esterase,Urine Moderate (Negative); Nitrite,Urine Negative (Negative); PH, Urine 6.5 (5.0-8.0); Protein,Urine Negative (Negative); Specific Gravity,Urine 1.004 (1.001-1.035); Squamous Epithelial Cell,Urine <1 /hpf (0-4); Urobilinogen,Urine <2.0 mg/dL (<2.0); WBC,Urine 7 /hpf (0-5)
[2021-08-06 14:59] VITALS: BMI 34.1
[~2021-08-10 06:16] MED LIST changes: -ACETAMINOPHEN TAB 500 MG TAB PO PRN; -GABAPENTIN 300 MG CAP PO PRN; -HYDROmorphone 0.5 MG/0.5 ML SYRINGE IVP PRN; -MELOXICAM 7.5 MG TAB PO PRN; -ROPIVACAINE/EPI/CLONIDINE/KET 50 ML SYRINGE MISCELLANE PRN; -TRANEXAMIC ACID 1,000 MG in SODIUM CHLORIDE 0.9% 100 ML IVPB PRN; +ceFAZolin 1,000 MG in SODIUM CHLORIDE 0.9% IRRIGATIO 1,000 ML IRRIGATION PRN
[2021-08-10] MEDS: LACTATED RINGERS 1,000 ML IV SCH (07:05)
[2021-08-10] MEDS ORDERED: ROCURONIUM 10 MG/ML (5 ML VIAL) IV ONE (07:40)
[2021-08-10] MEDS ORDERED: GLYCOPYRROLATE 0.2 MG/ML 2 ML VIAL ONE (07:40)
[2021-08-10] MEDS ORDERED: fentaNYL (PF) 50 MCG/ML 2 ML AMP ONE (07:40)
[2021-08-10] MEDS ORDERED: PROPOFOL 10 MG/ML 20 ML VIAL IV ONE (07:40)
[2021-08-10] MEDS ORDERED: HYDROmorphone (PF) 1 MG/ML ONE (07:40)
[2021-08-10] MEDS ORDERED: MIDAZOLAM 2 MG/2 ML VIAL ONE (07:40)
[2021-08-10] MEDS ORDERED: PHENYLEPHRINE-0.9% NACL SYG 1,000 MCG/10 ML SYRINGE ONE (07:40)
[2021-08-10] MEDS ORDERED: LIDOCAINE 1% INJ 10MG/ML (20 ML MDV) ONE (07:40)
[2021-08-10] MEDS ORDERED: SUCCINYLCHOLINE CHLORIDE 100 MG/5 ML SYR IV ONE (07:40)
[2021-08-10] MEDS ORDERED: NEOSTIGMINE 1 MG/ML 10 ML VIAL ONE (07:40)
[2021-08-10] MEDS ORDERED: LIDOCAINE 1%-EPI 1:100,000 20 ML VIAL SQ ONE (08:08)
[2021-08-10] MEDS ORDERED: GELATIN SPONGE,ABSORB (LARGE) 1 EACH SPONGE TOPICAL ONE (08:08)
[2021-08-10] MEDS ORDERED: THROMBIN (BOVINE) 5,000 UNIT VIAL TOPICAL ONE (08:08)
[2021-08-10] MEDS ORDERED: BUPIVACAINE (PF) 0.5% 30 ML VIAL MISCELLANE ONE (08:08)
[2021-08-10] MEDS ORDERED: LACTATED RINGERS 1,000 ML IV ONE ×2 (09:30→11:17)
[2021-08-10] MEDS ORDERED: HYDROmorphone 1 MG/ML 1 ML SYRINGE IVP PRN (11:35)
[2021-08-10] MEDS ORDERED: MAGNESIUM HYDROXIDE 2,400 MG/10 ML CUP PO PRN (11:35)
[2021-08-10] MEDS ORDERED: ACETAMINOPHEN TAB 325 MG TAB PO PRN (11:35)
[2021-08-10] MEDS ORDERED: ONDANSETRON 4 MG/2 ML VIAL IVP PRN (11:35)
[2021-08-10] MEDS ORDERED: BENZOCAINE/MENTHOL LOZENG 1 EACH LOZENGE MUCOUS MEM PRN (11:35)
[2021-08-10] MEDS ORDERED: CYCLOBENZAPRINE 5 MG TAB PO PRN (11:38)
[2021-08-10] MEDS ORDERED: ALBUTEROL NEBULIZED 2.5 MG/3 ML INHALATION PRN (11:38)
[2021-08-10] MEDS ORDERED: ALPRAZolam 0.25 MG TAB PO PRN (11:38)
[2021-08-10] MEDS ORDERED: GABAPENTIN 100 MG CAP PO PRN (11:38)
[2021-08-10] MEDS ORDERED: MECLIZINE 25 MG TAB PO PRN (11:38)
[2021-08-10] MEDS ORDERED: ALBUTEROL HFA INHALER INHALATION PRN (11:38)
--- NOTE | 2021-08-10 11:48 | P.OP ---
Date of Procedure: 08/10/21 Preoperative Diagnosis: Spondylolisthesis L4 5, severe spinal stenosis L4 5, lower extremity radiculopathy, lower extremity weakness, low back pain Postoperative Diagnosis: Same Anesthesia: GETA Pathology: none sent Condition: stable Disposition: PACU Description of Procedure: DESCRIPTION OF PROCEDURE(S): BRIEF OPERATIVE NOTE Preoperative Diagnosis: Spondylolisthesis L4 5, severe spinal stenosis L4 5, lower extremity radiculopathy, lower extremity weakness, low back pain Postoperative Diagnosis: Same Procedure: Laminectomy and decompression L4 [address] navigation aided Minimally invasive Posterior lateral decompression and facet fusion L4 5 Minimally invasive Transforaminal lumbar interbody fusion for a 360 fusion L4 5 Discectomy for decompression L4 5 Placement of interbody graft Use of computer navigation for fusion Local autogenous bone grafting Aspiration of bone marrow from the vertebral body pedicle of L4 on the right Use of bone graft extenders Surgeon: Dr. Galindo Vehicle Fare Collector: Ronal FLORES who is present throughout the entire the case persistence during positioning, dissection, exposure, visualization, and all crucial elements of the case as well as closure. Anesthesia: General anesthesia per Roger Estimated blood loss: Approximately 200 mL Complications: None apparent Components implanted: K2M minimally invasive [place] pedicle screw system withscrews measuring 6.5 mm in diameter to rods one [place] interbody cage with 10 mL of osteo amp bio4 bone graft substitute and 30 mL of the BX bone fibers to supplement the local autogenous bone graft and bone marrow aspirate Disposition: To recovery room in good stable condition. OPERATIVE INDICATIONS The patient has had severe issues at their lower extremity in her lower back over the past several years with significant worsening over the past several months. Over the past few months the patient had pain at their back and their lower extremities. The patient is having severe radicular symptoms at their lower extremity with weakness. The patient is having significant pain in their back. They are unable to obtain any comfort. We did aggressive conservative treatment with medications therapy and interventional pain management however thery were not having any relief. The patient also showed evidence of a listhesis with some dynamic instability at L4 5 with severe spinal stenosis and foraminal stenosis at that level which correlated well with her pain. The patient has been through conservative treatment. We discussed various treatment options including surgery, and the patient wishes to proceed with surgery We discussed the risk, patient's alternatives and benefits of surgery including but not limited to, risk of bleeding risk of infection, risk of need for further surgery, risk of decreased, loss of motion, muscle function, malunion nonunion, hardware failure, nerve damage, paralysis, heart attack, blindness and . They understood issues with the current pandemic and the possibility of exposure. OPERATIVE SUMMARY After discussing all the risks, patient alternatives and benefits at length, the patient elected to proceed with surgical intervention, signed informed consent, and presented for their procedure. The patient was seen and examined in the preoperative holding area and the surgical site was marked. The patient was given antibiotics and brought to the operating room. The patient was sedated and intubated by anesthesia in standard fashion. The patient was positioned on to the operating room table in a prone position on the appropriate frame which was well-padded and well molded. We were careful to pad any bony prominences and pressure points. We were careful to maintain the patient's cervical spine and good neutral alignment and position throughout. The patient was prepped and draped in a normal standard fashion. An appropriate timeout and keystone protocol performed. We were able to proceed with the surgery. The local wound area was infiltrated with local anesthetic. Over the right iliac crest I was able to make small stab incisions and establish a guidepin screw fixation to the iliac crest 2. I was able place the computer referencing device over the guidepins to establish an appropriate reference point for the Ziem CT navigation. We then were able to place patient in an appropriate drape and do a navigation spin for visualization and 3-D reconstruction of the lumbar spine. I was able utilize C-arm guidance and navigation to establish appropriate position over the pedicles bilaterally at the appropriate levels of L4 5 . With the appropriate levels confirmed was able to make small incisions over the appropriate pedicle sites bilaterally. Utilizing the computer navigation device I was able to establish bony landmarks at the right iliac crest for a bony reference point for the navigation device. I was able to establish a Jamshidi needle over the lateral aspect of the pedicle and advanced the trocar into the pedicle being careful not to breech superiorly inferiorly medially or laterally using computer navigation device. Position was confirmed regularly with AP and lateral images on C-arm and with the computer navigation device at the appropriate levels bilaterally. I was able to establish the trocar into the pedicle appropriately into the posterior aspect of the vertebral body bilaterally at the appropriate levels. This was done at each of the pedicle positions and each of the vertebrae. At the superior vertebrae of L4 on the right I was able to take approximately 25 mL of bone aspiration for use later in the case to supplement the allograft and autograft bone. I was able place the guidewire into the trocar and into the vertebral body appropriately under C-arm guidance. Dissection was taken down over the wire to the appropriate starting position for the screw placed. The appropriate length screw was chosen, threaded over the guidewire and screwed appropriately into the pedicle and vertebral body under C-arm guidance in excellent alignment and position with good bony purchase. This is done at each of the screw sites at the appropriate levels at both L4 and L5. With the screws intact I extended the incision to connect the screw hole sites on the most symptomatic side on the left. I dissected down to establish access over the pars and lamina to the base of the spinous process. I was able to expose the facet joint. The capsule the facet was taken down and showed some facet arthrosis at the joint. I was able to use a combination of curettes and [place] rongeurs and a high-speed drill to take down the facet joint and do a facetectomy. I was able get excellent foraminal decompression and central decompression with undermining across midline to perform a laminectomy centrally and contralaterally. As able get good central decompression. The ligamentum flavum was taken down to further decompress centrally and at bilateral neural foramen. I was able to expose the disc space and visualize the traversing nerve root. Note was made of some disc protrusion and disc herniation that was abutting the traversing nerve root at the level causing further compression of the nerve root. I was able to establish a annulotomy at the appropriate level protecting soft tissue and neural structures. I was able get excellent decompression with a laminectomy facetectomy and discectomy. Note was made of some disc desiccation at the disc. I performed a complete discectomy with accommodation of curettes and rasps and scrapers. I was able get good endplate preparation at the disc space. During the discectomy was a breech in the inferior endplate and loss of bone at L5. This was just at the undersurface of the superior endplate of L5. I placed a bone graft and local autogenous bone graft within the area but is not provide adequate support underneath the endplate. I extended the area and size and placed a 8 mm [place] interbody cage at the space and he gave good stabilization underneath endplate. Imaging showed the cage within the vertebral body of L5 at the undersurface of the endplate of the superior aspect of L5. I felt that this would give the best support at the endplate and went ahead with the remainder of the discectomy at L4 5 with appropriate sizing with an 8 mm sizer at the L4 5 disc space I sized for the appropriate size interbody spacer protecting the soft tissue and neural structures. The wound was copiously irrigated and suctioned dry. There is no evidence of any dural tear or leak. I was able to pack the disc space with local autogenous bone graft as well as a small amount of bone graft which was also placed into the interbody cage itself. Protecting the soft tissue structures and neural structures I was able place the interbody cage in good alignment and good position with good fit and fill at the interbody space. The L4 5 cage was sitting appropriately at the space with the L5 cage acting as a bony strut and support within the vertebral bodies of L5 underneath the endplate. I felt that this was the best option and support construct to maintain the space and height at L4 5 and at the L5 vertebral body. It had good stability with no evidence of protrusion. Position was confirmed with C-arm guidance. Good hemostasis maintained. There is no evidence of any dural tear or leak. The wound was irrigated and suctioned dry. With the hardware intact, intraoperative C-arm imaging was again taken which showed good alignment and position of the hardware at the appropriate levels. We were then able to measure, contour and place the rods and appropriate hardware bilaterally. I was able to place capcrews, tighten them down, and torque them with the torque screwdriver appropriately. With this intact I was able to place the local autogenous bone graft with additional bone graft enhancer as necessary into the posterior lateral gutters over the decorticated transverse processes and facet joints on the contralateral side. The remainder of the bone graft was placed over the facet joint on the contralateral side after taking down the facet joint capsule. With the bone graft intact, a stable construct, and good decompression at the appropriate levels, we were able to proceed with closure. Good hemostasis was maintained. There is no evidence of dural tear or leak. The fascia was closed for a watertight closure. he subcuticular tissue was closed with absorbable suture. The wound was cleaned and dried and dressed with the appropriate dressing. The drapes were broken down. The patient was gently rolled back onto their hospital bed being careful to maintain their cervical spine and good neutral alignment and position. They were woken up by anesthesia, extubated, and brought to the recovery room in good stable condition. The patient will be admitted to the hospital for appropriate postoperative care, medical management and monitoring. We will continue to follow them closely about the postoperative course.
[2021-08-10] MEDS ORDERED: ONDANSETRON 4 MG/2 ML VIAL IVP ONE (12:10)
[2021-08-10] MEDS: HYDROmorphone 0.5 MG/0.5 ML SYRINGE IVP PRN ×3 (12:12→13:32)
[2021-08-10] MEDS ORDERED: diphenhydrAMINE 50 MG/ML 1 ML VIAL ONE (12:27)
[2021-08-10] MEDS ORDERED: diphenhydrAMINE 50 MG/ML 1 ML VIAL IVP ONE (12:30)
--- NOTE | 2021-08-10 12:46 | XR ---
EXAMINATION TYPE: XR lumbar spine 2 or 3V DATE OF EXAM: 08/10/2021 COMPARISON: NONE HISTORY: Hardware TECHNIQUE: 7 intraoperative images of the lumbar spine were submitted for review on scanned in paper copies which are nondiagnostic. 17 seconds reported fluoroscopic time. FINDINGS: Hardware is noted in the lower lumbar spine. IMPRESSION: Hardware as noted in the lower lumbar spine.
[2021-08-10] MEDS: CYCLOBENZAPRINE 10 MG TAB PO PRN (13:04)
[2021-08-10] MEDS: SODIUM CHLORIDE 0.9% 1,000 ML IV SCH (16:20)
[2021-08-10] MEDS: FLUTICASONE 220 MCG INHALER INHALATION SCH (20:00)
[2021-08-10] MEDS ORDERED: hydrOXYzine HCL 50 MG/ML 1 ML VIAL IM ONE (21:00)
[2021-08-10] MEDS: traMADol 50 MG TAB PO PRN (22:11)
[2021-08-10] MEDS: METOPROLOL TARTRATE 25 MG TAB PO SCH (22:14)
[2021-08-11] MEDS: HYDROmorphone 0.5 MG/0.5 ML SYRINGE IVP PRN ×2 (01:46→05:23)
[2021-08-11] MEDS: LACTATED RINGERS 1,000 ML IV SCH ×2 (04:46→22:55)
[2021-08-11] MEDS: SODIUM CHLORIDE 0.9% 1,000 ML IV SCH ×2 (05:23→18:05)
[2021-08-11 05:56] LABS: Basophils % (A) 0 %; Eosinophils % (A) 0 %; HCT 33.3 % (34.0-46.0); Lymphocytes # (A) 1.1 k/uL (1.0-4.8); Lymphocytes % (A) 12 %; MCH 29.6 pg (25.0-35.0); MCHC 33.1 g/dL (31.0-37.0); MCV 89.5 fL (80.0-100.0); Mean Platelet Volume 8.6; Monocytes # (A) 0.5 k/uL (0-1.0); Monocytes % (A) 5 %; Neutrophils # (A) 7.5 k/uL (1.3-7.7); Neutrophils % (A) 82 %; Platelet Count 192 k/uL (150-450); RBC 3.72 m/uL (3.80-5.40); RDW 12.2 % (11.5-15.5); WBC 9.2 k/uL (3.8-10.6)
[2021-08-11] MEDS: FLUTICASONE 220 MCG INHALER INHALATION SCH ×2 (08:00→19:16)
--- NOTE | 2021-08-11 08:03 | FL ---
EXAMINATION TYPE: FL guidance operating room DATE OF EXAM: 08/10/2021 FLUOROSCOPY Fluoroscopy time of 17 seconds was used during hardware placement for lumbar fusion. 7 image/s docum ent/s the procedure.
--- NOTE | 2021-08-11 08:52 | P.PN ---
Progress Note - Text Progress Note Date: 08/11/21 Orthopedic Spine: History of present illness: Patient is a pleasant 61-year-old female who is seen and examined at the bedside following posterior lateral decompression and fusion performed yesterday. Patient states they are doing okay postsurgically. She has some soreness over her surgical sites. She is lying comfortably in bed. She is not currently complaining of lower extremity radiculopathy. She has had some difficulty with nausea overnight. She is receiving Zofran. Currently does not complain of fever or chills. Patient states pain has been adequately controlled. Patient is eating without difficulty. Her Simpson catheter has been discontinued this morning. She has not yet transferred to a bedside commode. She is planning to work with physical therapy today to increase her mobility and ambulation. She does have difficulty with oral Soledad. Her pain is being controlled with IV Dilaudid and oral tramadol. Consultation has been placed with medicine for medical management postoperatively. Physical Exam Lumbar Fusion: Status post surgical day number 1 Patient is awake, alert, and oriented 3 Vital signs stable Good chest excursion with deep inspiration and expiration Abdomen soft nontender Dorsiflexion, plantarflexion, and extensor hallucis longus positive sustained bilaterally No signs or symptoms of DVT; no calf pain; pneumatic cuffs intact bilateral lower extremities Optifoam dressings remain intact over the lumbar spine and right iliac crest Neurovascularly intact bilaterally lower extremities Assessment: Status post L4-5 minimally invasive posterior lateral decompression and fusion with transforaminal lumbar interbody fusion Low back pain L4-5 spondylolisthesis L4-5 severe spinal stenosis Lower extremity radiculopathy Lower extremity weakness Hypertension Hyperlipidemia Plan: 1. Ambulate as tolerated; work with Physical Therapy to increase mobilization 2. Continue pain control with IV and oral medications; will plan to begin weaning the patient off of IV narcotic medication in anticipation for discharge home in the next 1-2 days 3. Dressings to remain intact with Optifoam; patient may shower with dressings intact 4. Medical management can continue to manage patient for patient's other medical diagnoses 5. We will continue to follow the patient closely; depending on the patient's progress, we may plan for discharge home as early as tomorrow, 6. Patient can follow-up with Ronal Hough PA-C or Dr. Stanford Galindo at [facility] in 2-3 weeks following discharge
[2021-08-11] MEDS ORDERED: CHOLECALCIFEROL 25 MCG (1000 IU) TABLET PO SCH (09:00)
[2021-08-11] MEDS ORDERED: ATORVASTATIN 20 MG TAB PO SCH (09:00)
[2021-08-11] MEDS: SENNOSIDES-DOCUSATE SODIUM 1 EACH TAB PO SCH (09:23)
[2021-08-11] MEDS: MULTIVITAMINS, THERA 1 EACH TAB PO SCH (09:24)
[2021-08-11] MEDS: ZINC SULFATE 220 MG CAP PO SCH (09:24)
[2021-08-11] MEDS: MONTELUKAST 10 MG TAB PO SCH (09:24)
[2021-08-11] MEDS: METOPROLOL TARTRATE 25 MG TAB PO SCH ×2 (09:24→19:49)
[2021-08-11] MEDS: FLUTICASONE 50MCG/SPRAY NASAL 16GM EA NOSTRIL SCH (09:24)
[2021-08-11] MEDS: FAMOTIDINE 20 MG TAB PO SCH (09:24)
[2021-08-11] MEDS: CHOLECALCIFEROL 25 MCG (1000 IU) TABLET PO SCH (09:24)
[2021-08-11] MEDS: MAGNESIUM OXIDE 400 MG TAB PO SCH (09:24)
[2021-08-11] MEDS: traMADol 50 MG TAB PO PRN ×3 (09:25→21:44)
[2021-08-11 10:51] LABS: African American GFR (CKD) 108.4 (60.0-200.0); Anion Gap 12.5 mmol/L (4.00-12.00); BUN/Creat Ratio 12.71 Ratio (12.00-20.00); Blood Urea Nitrogen 8.9 mg/dL (9.0-27.0); Calcium 8.6 mg/dL (8.7-10.3); Carbon Dioxide 22.5 mmol/L (21.6-31.8); Non-African American GFR(CKD) 93.5 (60.0-200.0); Potassium 4.1 mmol/L (3.5-5.5)
--- NOTE | 2021-08-11 12:22 | P.CONS ---
History of Present Illness - Reason for Consult Consult date: 08/11/21 - History of Present Illness HISTORY OF PRESENT ILLNESS This is a 61-year-old female patient of Dr. Kahn with past medical history of hypertension, hyperlipidemia, TIA, COPD, mild intermittent asthma, myocardial infarction, history of SVT, generalized anxiety disorder vitamin D deficiency, osteoarthritis, chronic back pain with neuropathy. Patient has been brought in the hospital under the care of Dr. Galindo for spondylolisthesis L4 5, severe spinal stenosis L4 5, lower extremity radiculopathy, lower extremity weakness and low back pain status post posterior lateral decompression and fusion, postop day #1. Patient had nausea last evening but this is improved. She has been afebrile and vital signs have been stable. Blood work reveals hemoglobin 11. Sodium 133. Creatinine 0.7. Blood sugar 117. Patient is scheduled to start working with physical therapy today. REVIEW OF SYSTEMS Constitutional: No fever, no chills, no night sweats. No weight change. No weakness, fatigue or lethargy. No daytime sleepiness. EENT: No headache. No blurred vision or double vision, no loss of vision. No loss of Hearing, no ringing in the ears, no dizziness. No nasal drainage or congestion. No epistaxis. No sore throat. Lungs: No shortness of breath, cough, no sputum production. No wheezing. Cardiovascular: No chest pain, no lower extremity edema. No palpitations. No paroxysmal nocturnal dyspnea. No orthopnea. No lightheadedness or dizziness. No syncopal episodes. Abdominal: No abdominal pain. Reported nausea, resolved, no vomiting. No diarrhea. No constipation. No bloody or tarry stools. No loss of appetite. Genitourinary: No dysuria, increased frequency, urgency. No urinary retention. Musculoskeletal: No myalgias. No muscle weakness, no gait dysfunction, no frequent falls. Reports lumbar back pain. No neck pain. Integumentary: No wounds, no lesions. No rash or pruritus. No unusual bruising. Neurologic: No aphasia. No facial droop. No change in mentation. No head injury. No headache. No paralysis. No paresthesia. Psychiatric: No depression. No anxiety. No mood swings. Endocrine: No abnormal blood sugars. SOCIAL HISTORY Patient was a smoker of cigarettes and quit 20 years ago. She drinks alcohol occasionally. She lives at home with her . Patient's [id number] will be helping her at discharge. FAMILY HISTORY Father at age 76 from CVA. Mother at age 86 from colon cancer. Patient was 1 sister that at age 69 from a myocardial infarction or CVA with history of PE and diabetes. Patient has 1 daughter with Carmen's and 2 sons with no major medical problems. PHYSICAL EXAMINATION Gen: This is a 61-year-old female, resting in chair at the bedside and appears to be comfortable at rest. HEENT: Head is atraumatic, normocephalic. Pupils equal, round. Sclerae is anicteric. NECK: Supple. No JVD. No lymphadenopathy. No thyromegaly. LUNGS: Clear to auscultation. No wheezes or rhonchi. No intercostal retractions. HEART: Regular rate and rhythm. No murmur. ABDOMEN: Soft. Bowel sounds are present. No masses. No tenderness. EXTREMITIES: No pedal edema. No calf tenderness. Noted back discomfort. Left sided sciatica. NEUROLOGICAL: Patient is awake, alert and oriented x3. Cranial nerves 2 through 12 are grossly intact. ASSESSMENT AND PLAN 1. Spondylolisthesis and severe spinal stenosis L4-5 status post posterior lateral decompression and fusion, 08/10. Continue current pain management per orthopedic spine, therapies, activity per orthopedics. Incentive spirometry to reduce incidence of atelectasis and hospital-acquired pneumonia. 2. COPD and mild intermittent asthma. Continue albuterol nebulizer every 6 hours as needed, Flovent 2 puffs twice daily, Singulair 10 mg at bedtime. 3. Hypertension. Continue Lopressor 25 mg twice daily. 4. Hyperlipidemia. Continue Lipitor 20 mg every 48 hours. 5. History of TIA, stable. 6. History of [place]. Continue Lopressor, Lipitor. 7. Generalized anxiety disorder. Continue Xanax 0.5 mg twice daily as needed. 8. Vitamin D deficiency. Continue supplement. 9. GI prophylaxis. Protonix. 10. DVT prophylaxis. SCDs and MINNA hose, early ambulation. 11. COVID-19 testing negative. Patient has been hospitalized during a pandemic. DISCHARGE PLAN Most likely home with home care in the next 24-48 hours. Impression and plan of care have been directed as dictated by the signing physician. Marion Koehler nurse practitioner acting as scribe for signing physician. Past Medical History Past Medical History: Asthma, COPD, CVA/TIA, GERD/Reflux, Hyperlipidemia, Hypertension, Myocardial Infarction (MA), Osteoarthritis (OA), Supraventricular Tachycardia (SVT) Additional Past Medical History / Comment(s): hx of TIA's-no residual effects, hx. SVT-seems to happen when very anxious, last episode this past Tuesday-states Dr. Bunch aware, just finished antibiotic for UTI-repeat UA wnl per pt- done @[facility] Last Myocardial Infarction Date:: unk. History of Any Multi-Drug Resistant Organisms: None Reported Past Surgical History: Joint Replacement, Orthopedic Surgery Additional Past Surgical History / Comment(s): MUMTAZ, CAVAZOS'S NEUROMA REMOVED RT FOOT, SUNUS SX, TUBES IN EARS, LUNG BX-neg., left hip replaced January 2021 Past Anesthesia/Blood Transfusion Reactions: No Reported Reaction Additional Past Anesthesia/Blood Transfusion Reaction / Comm: sister stopped breathing during a surgery-not sure why-she had lots of health problems per pt. Smoking Status: Former smoker - Past Family History Mother Family Medical History: Cancer, Osteoarthritis (OA) Additional Family Medical History / Comment(s): COLON Sister(s) Family Medical History: Deep Vein Thrombosis (DVT), Pulmonary Embolus Medications and Allergies Home Medications Medication Instructions Recorded Confirmed Type ALPRAZolam [Xanax] 0.25 mg PO BID PRN #0 02/01/19 08/10/21 History Cholecalciferol [Vitamin D3 (25 5,000 unit PO DAILY 02/01/19 08/06/21 History Mcg = 1000 Iu)] Famotidine [Pepcid] 20 mg PO DAILY #0 02/01/19 08/06/21 History Magnesium 200 mg PO DAILY #0 02/01/19 08/06/21 History Metoprolol Tartrate [Lopressor] 25 mg PO BID #0 02/01/19 08/06/21 History Montelukast [Singulair] 10 mg PO DAILY 02/01/19 08/06/21 History Atorvastatin [Lipitor] 20 mg PO Q48H 02/07/19 08/06/21 History Albuterol Nebulized [Ventolin 2.5 mg INHALATION Q6H PRN 01/26/21 08/10/21 History Nebulized] Albuterol Sulfate [Proair Hfa] 1 - 2 puff INHALATION Q6HR PRN 01/26/21 08/06/21 History Cholecalciferol [Vitamin D3 (25 25 mcg PO DAILY 01/26/21 08/06/21 History Mcg = 1000 Iu)] Cyclobenzaprine [Flexeril] 5 mg PO TID PRN 01/26/21 08/06/21 History Fluticasone Nasal [place] [Flonase 2 spr EA NOSTRIL DAILY 01/26/21 08/06/21 History Nasal [place]] Gabapentin [Neurontin] 100 mg PO DAILY PRN 01/26/21 08/06/21 History Multivitamins, Thera [Multivitamin 1 tab PO DAILY 01/26/21 08/06/21 History (formulary)] Zinc 50 mg PO DAILY 01/26/21 08/06/21 History Fluticasone Propionate 220 Mcg 2 puff INHALATION RT-BID 08/06/21 08/06/21 History [Flovent 220 Mcg Inhaler (Mhu)] Meclizine [Antivert] 25 mg PO DIRECTED PRN 08/06/21 08/10/21 History Allergies Allergy/AdvReac Type Severity Reaction Status Date / Time adhesive tape Allergy Rash/Hives Verified 08/10/21 06:43 chlorhexidine Allergy Rash/Hives Verified 08/10/21 06:43 hydrocodone [From [place]] Allergy headache, Verified 08/10/21 06:43 N/V Physical Exam Vitals: Vital Signs Temp Pulse Resp BP Pulse Ox 08/11/21 04:41 98.2 F 82 16 119/73 96 08/10/21 20:19 97.6 F 85 18 145/82 96 08/10/21 20:00 18 08/10/21 19:30 97.9 F 59 L 18 143/76 98 08/10/21 15:00 74 16 148/88 98 08/10/21 14:30 79 16 147/88 94 L 08/10/21 13:56 68 16 116/58 94 L 08/10/21 13:25 63 16 131/61 97 08/10/21 13:10 65 16 120/62 94 L 08/10/21 12:55 60 16 120/62 95 08/10/21 12:40 68 16 139/75 100 08/10/21 12:25 65 16 120/56 100 08/10/21 12:10 65 16 143/79 100 08/10/21 11:55 72 16 130/80 99 08/10/21 11:40 98 F 68 16 152/100 99 Intake and Output 08/10/21 08/11/21 08/11/21 22:59 06:59 14:59 Intake Total 1750 Output Total 1200 1300 Balance 550 -1300 Intake: IV 750 Intake, IV Titration 400 Amount Sodium Chloride 0.9% 1, 400 000 ml @ 75 mls/hr IV . [id number] [facility] Rx#:[id number] Oral 600 Output: Urine 400 1300 Emesis 800 Other: Voiding Method Indwelling Catheter # Bowel Movements 0 # Emeses 1 Results CBC & Chem 7: 08/11/21 05:20 08/11/21 05:20 Labs: Abnormal Lab Results - Last 24 Hours (Table) 08/11/21 Range/Units 05:20 RBC 3.72 L (3.80-5.40) m/uL Hgb 11.0 L (11.4-16.0) gm/dL Hct 33.3 L (34.0-46.0) %
[2021-08-11] MEDS: CYCLOBENZAPRINE 10 MG TAB PO PRN ×2 (14:50→21:44)
[2021-08-12] MEDS: SODIUM CHLORIDE 0.9% 1,000 ML IV SCH (04:13)
[2021-08-12] MEDS: CYCLOBENZAPRINE 10 MG TAB PO PRN ×2 (05:29→14:46)
[2021-08-12] MEDS: traMADol 50 MG TAB PO PRN ×2 (05:29→14:46)
[2021-08-12] MEDS: FLUTICASONE 220 MCG INHALER INHALATION SCH (07:21)
[2021-08-12] MEDS: SENNOSIDES-DOCUSATE SODIUM 1 EACH TAB PO SCH (08:03)
[2021-08-12] MEDS: MULTIVITAMINS, THERA 1 EACH TAB PO SCH (08:03)
[2021-08-12] MEDS: MONTELUKAST 10 MG TAB PO SCH (08:04)
[2021-08-12] MEDS: FLUTICASONE 50MCG/SPRAY NASAL 16GM EA NOSTRIL SCH (08:04)
[2021-08-12] MEDS: ZINC SULFATE 220 MG CAP PO SCH (08:04)
[2021-08-12] MEDS: CHOLECALCIFEROL 25 MCG (1000 IU) TABLET PO SCH (08:04)
[2021-08-12] MEDS: MAGNESIUM OXIDE 400 MG TAB PO SCH (08:04)
[2021-08-12] MEDS: FAMOTIDINE 20 MG TAB PO SCH (08:04)
[2021-08-12] MEDS: METOPROLOL TARTRATE 25 MG TAB PO SCH (08:04)
--- NOTE | 2021-08-12 12:26 | P.PN ---
Subjective Progress Note Date: 08/12/21 HISTORY OF PRESENT ILLNESS This is a 61-year-old female patient of Dr. Kahn with past medical history of hypertension, hyperlipidemia, TIA, COPD, mild intermittent asthma, myocardial infarction, history of SVT, generalized anxiety disorder vitamin D deficiency, osteoarthritis, chronic back pain with neuropathy. Patient has been brought in the hospital under the care of Dr. Galindo for spondylolisthesis L4 5, severe spinal stenosis L4 5, lower extremity radiculopathy, lower extremity weakness and low back pain status post posterior lateral decompression and fusion, postop day #1. Patient had nausea last evening but this is improved. She has been afebrile and vital signs have been stable. Blood work reveals hemoglobin 11. Sodium 133. Creatinine 0.7. Blood sugar 117. Patient is scheduled to start working with physical therapy today. 08/12: Patient is feeling well today. Her back pain is controlled. She states she has been ambulating. She states she had some nausea this morning but states that this is not uncommon after she has surgery. She denies any lightheadedness or dizziness. Patient is passing gas but no bowel movement her last bowel movement was one day prior to surgery. Patient is been instructed to increase fiber. She's been afebrile, heart rate 89, blood pressure 144/83, pulse ox 94% on room air. Patient states that she is scheduled for discharge home today. Medication reconciliation has been reviewed. REVIEW OF SYSTEMS Constitutional: No fever, no chills, no night sweats. No weight change. No weakness, fatigue or lethargy. No daytime sleepiness. EENT: No headache. No blurred vision or double vision, no loss of vision. No loss of Hearing, no ringing in the ears, no dizziness. No nasal drainage or con gestion. No epistaxis. No sore throat. Lungs: No shortness of breath, cough, no sputum production. No wheezing. Cardiovascular: No chest pain, no lower extremity edema. No palpitations. No paroxysmal nocturnal dyspnea. No orthopnea. No lightheadedness or dizziness. No syncopal episodes. Abdominal: No abdominal pain. Reported nausea, resolved, no vomiting. No diarrhea. No constipation. No bloody or tarry stools. No loss of appetite. Genitourinary: No dysuria, increased frequency, urgency. No urinary retention. Musculoskeletal: No myalgias. No muscle weakness, no gait dysfunction, no frequent falls. Reports lumbar back discomfort. No neck pain. Integumentary: No wounds, no lesions. No rash or pruritus. No unusual bruising. Neurologic: No aphasia. No facial droop. No change in mentation. No head injury. No headache. No paralysis. No paresthesia. Psychiatric: No depression. No anxiety. No mood swings. Endocrine: No abnormal blood sugars. PHYSICAL EXAMINATION Gen: This is a 61-year-old female, resting in chair at the bedside and appears to be comfortable. HEENT: Head is atraumatic, normocephalic. Pupils equal, round. Sclerae is anicteric. NECK: Supple. No JVD. No lymphadenopathy. No thyromegaly. LUNGS: Clear to auscultation. No wheezes or rhonchi. No intercostal retractions. HEART: Regular rate and rhythm. No murmur. ABDOMEN: Soft. Bowel sounds are present. No masses. No tenderness. EXTREMITIES: No pedal edema. No calf tenderness. Noted back discomfort. NEUROLOGICAL: Patient is awake, alert and oriented x3. ASSESSMENT AND PLAN 1. Spondylolisthesis and severe spinal stenosis L4-5 status post posterior lateral decompression and fusion, 08/10. Continue current pain management per orthopedic spine, so therapy and occupational therapy and activity per orthopedics. Incentive spirometry to reduce incidence of atelectasis and hospital-acquired pneumonia. 2. COPD and mild intermittent asthma. Continue albuterol nebulizer every 6 hours as needed, Flovent 2 puffs twice daily, Singulair 10 mg at bedtime. 3. Hypertension. Continue Lopressor 25 mg twice daily. 4. Hyperlipidemia. Continue Lipitor 20 mg every 48 hours. 5. History of TIA, stable. 6. History of [place]. Continue Lopressor, Lipitor. 7. Generalized anxiety disorder. Continue Xanax 0.5 mg twice daily as needed. 8. Vitamin D deficiency. Continue supplement. 9. GI prophylaxis. Protonix. 10. DVT prophylaxis. SCDs and MINNA hose, early ambulation. 11. COVID-19 testing negative. Patient has been hospitalized during a pandemic. DISCHARGE PLAN Home Impression and plan of care have been directed as dictated by the signing physician. Marion Koehler nurse practitioner acting as scribe for signing physician. Objective - Vital Signs Vital signs: Vital Signs Temp 99.0 F 08/12/21 05:00 Pulse 88 08/12/21 08:02 Resp 18 08/12/21 05:00 BP 122/74 08/12/21 08:02 Pulse Ox 94 L 08/12/21 05:00 Intake & Output 08/11/21 08/12/21 08/12/21 18:59 06:59 18:59 Intake Total 1250 2000 Balance 1250 2000 Intake: Intake, IV Titration 650 900 Amount Sodium Chloride 0.9% 1, 600 900 000 ml @ 75 mls/hr IV . [id number] [facility] Rx#:[id number] ceFAZolin 2 gm In Sodium 50 Chloride 0.9% 50 ml @ 100 mls/hr IVPB Q8HR [facility] Rx# :[id number] Oral 600 1100 Other: Voiding Method Bedside Commode Bedside Commode # Voids 3 4 - Labs CBC & Chem 7: 08/11/21 05:20 08/11/21 05:20 Labs: Abnormal Lab Results - Last 24 Hours (Table) 08/11/21 Range/Units 05:20 Sodium 133 L (135-145) mmol/L Anion Gap 12.50 H (4.00-12.00) mmol/L BUN 8.9 L (9.0-27.0) mg/dL Glucose 117 H (70-110) mg/dL Calcium 8.6 L (8.7-10.3) mg/dL
--- NOTE | 2021-08-12 13:54 | P.DS ---
<Ronal Hough - Last Filed: 08/12/21 13:48> Providers Expected date of discharge: 08/12/21 - Discharge Diagnosis(es) (1) Spondylolisthesis at L4-L5 level Current Visit: Yes Status: Acute (2) Lumbar stenosis Current Visit: Yes Status: Acute (3) Low back pain Current Visit: Yes Status: Acute (4) Radiculopathy with lower extremity symptoms Current Visit: Yes Status: Acute (5) Lower extremity weakness Current Visit: Yes Status: Acute (6) Hypertension Current Visit: Yes Status: Acute (7) Hyperlipidemia Current Visit: Yes Status: Acute (8) Status post lumbar spinal fusion Current Visit: Yes Status: Acute Hospital Course: This is a pleasant 61-year-old female who presented with L4 to 5 spondylolisthesis and severe spinal stenosis, low back pain, lower extremity radiculopathy, and lower extremity weakness who failed outpatient conservative therapy. She was admitted for an L4-5 minimally invasive posterior lateral decompression and fusion with transforaminal lumbar interbody fusion. The patient tolerated the procedure well and did well postoperatively. She has been able to increase her mobility and ambulation since yesterday. She's been able to ambulate to the restroom. She is eating and voiding without difficulty. Her pain has been controlled with oral tramadol and cyclobenzaprine. She has had some difficulty with nausea but it has been improving. She is passing gas without difficulty. She denies any abdominal pain. She feels she is ready for discharge today. Condition on day of discharge stable. Patient will be discharged home. Patient was cleared preoperatively for surgery by Dr. Kahn. Patient currently denies any nausea, vomiting, fever, or chills. Patient may shower Optifoam dressing intact. Patient may remove Optifoam dressing in 3 days and shower without a dressing at that time. Patient should refrain from driving until at least after their first follow-up appointment in the office. Patient should avoid excessive bending, lifting, and twisting; no lifting greater than 10 pounds. MAPS has been reviewed today, 08/12/2021, with an Overall Overdose Risk Score of 240. An "Opiod Start Talking" Form has been signed and placed in the patient's chart. A prescription has been written for tramadol 50 mg 1-2 tabs every 6 hours as needed for pain, dispensed #56. She is also given a prescription for cyclobenzaprine 10 mg 1 tab 3 times a day as needed for muscle spasm, dispensed #60. She should avoid anti-inflammatory medications over the next 6 weeks postoperatively. Patient's other medical diagnoses include hyperlipidemia and hypertension. Physical Exam on day of discharge: Status post surgical day number 2 Patient is awake, alert, and oriented 3 Vital signs stable Good chest excursion with deep inspiration and expiration Abdomen soft nontender Dorsiflexion, plantarflexion, and extensor hallucis longus positive sustained bilaterally No signs or symptoms of DVT; no calf pain; pneumatic cuffs intact bilateral lower extremities Optifoam dressings remain intact over the lumbar spine and right iliac crest; dressings are clean, dry, and intact; no active drainage; no obvious sign of infection Neurovascularly intact bilaterally lower extremities Procedures: L4-5 minimally invasive posterior lateral decompression and fusion with transforaminal lumbar interbody fusion Patient Condition at Discharge: Stable Plan - Discharge Summary Discharge Rx Participant: Yes New Discharge Prescriptions: New Cyclobenzaprine [Flexeril] 10 mg PO TID PRN #60 tab PRN Reason: Muscle Spasm traMADol HCl [Ultram] 50 mg PO Q6H PRN #56 tab PRN Reason: Pain Sennosides-Docusate Sodium [Senokot-S] 2 each PO DAILY tab Continue Montelukast [Singulair] 10 mg PO DAILY Cholecalciferol [Vitamin D3 (25 Mcg = 1000 Iu)] 5,000 unit PO DAILY Metoprolol Tartrate [Lopressor] 25 mg PO BID #0 Magnesium 200 mg PO DAILY #0 Famotidine [Pepcid] 20 mg PO DAILY #0 ALPRAZolam [Xanax] 0.25 mg PO BID PRN #0 PRN Reason: Anxiety Atorvastatin [Lipitor] 20 mg PO Q48H Multivitamins, Thera [Multivitamin (formulary)] 1 tab PO DAILY Cholecalciferol [Vitamin D3 (25 Mcg = 1000 Iu)] 25 mcg PO DAILY Albuterol Sulfate [Proair Hfa] 1 - 2 puff INHALATION Q6HR PRN PRN Reason: Shortness Of Breath Cyclobenzaprine [Flexeril] 5 mg PO TID PRN PRN Reason: Muscle Spasm Meclizine [Antivert] 25 mg PO DIRECTED PRN PRN Reason: Vertigo Albuterol Nebulized [Ventolin Nebulized] 2.5 mg INHALATION Q6H PRN PRN Reason: Shortness Of Breath Gabapentin [Neurontin] 100 mg PO DAILY PRN PRN Reason: Pain Fluticasone Nasal [place] [Flonase Nasal [place]] 2 spr EA NOSTRIL DAILY Zinc 50 mg PO DAILY Fluticasone Propionate 220 Mcg [Flovent 220 Mcg Inhaler (Mhu)] 2 puff INHALATION RT-BID Discharge Medication List ALPRAZolam [Xanax] 0.25 mg PO BID PRN #0 02/01/19 [History] Cholecalciferol [Vitamin D3 (25 Mcg = 1000 Iu)] 5,000 unit PO DAILY 02/01/19 [History] Famotidine [Pepcid] 20 mg PO DAILY #0 02/01/19 [History] Magnesium 200 mg PO DAILY #0 02/01/19 [History] Metoprolol Tartrate [Lopressor] 25 mg PO BID #0 02/01/19 [History] Montelukast [Singulair] 10 mg PO DAILY 02/01/19 [History] Atorvastatin [Lipitor] 20 mg PO Q48H 02/07/19 [History] Albuterol Nebulized [Ventolin Nebulized] 2.5 mg INHALATION Q6H PRN 01/26/21 [History] Albuterol Sulfate [Proair Hfa] 1 - 2 puff INHALATION Q6HR PRN 01/26/21 [History] Cholecalciferol [Vitamin D3 (25 Mcg = 1000 Iu)] 25 mcg PO DAILY 01/26/21 [History] Cyclobenzaprine [Flexeril] 5 mg PO TID PRN 01/26/21 [History] Fluticasone Nasal [place] [Flonase Nasal [place]] 2 spr EA NOSTRIL DAILY 01/26/21 [History] Gabapentin [Neurontin] 100 mg PO DAILY PRN 01/26/21 [History] Multivitamins, Thera [Multivitamin (formulary)] 1 tab PO DAILY 01/26/21 [History] Zinc 50 mg PO DAILY 01/26/21 [History] Fluticasone Propionate 220 Mcg [Flovent 220 Mcg Inhaler (Mhu)] 2 puff INHALATION RT-BID 08/06/21 [History] Meclizine [Antivert] 25 mg PO DIRECTED PRN 08/06/21 [History] Cyclobenzaprine [Flexeril] 10 mg PO TID PRN #60 tab 08/12/21 [Rx] Sennosides-Docusate Sodium [Senokot-S] 2 each PO DAILY tab 08/12/21 [Rx] traMADol HCl [Ultram] 50 mg PO Q6H PRN #56 tab 08/12/21 [Rx] Follow up Appointment(s)/Referral(s): Ronal Hough PAC [PHYSICIAN [employer] EQUIPMENT REPAIRER] - 08/24/21 2:15 pm (Patient may follow-up with Ronal Hough PA-C or Dr. Stanford Galindo at [facility] in 2-3 weeks following discharge. ) Mg Kahn MD [Primary Care Provider] - 08/27/21 1:00 pm Activity/Diet/Wound Care/Special Instructions: 1. Patient may shower with Optifoam dressing intact. 2. Patient may remove Optifoam dressing in 4 days and shower without a dressing at that time. 3. Patient should refrain from driving until at least after their first follow- up appointment in the office. 4. Patient should avoid excessive bending, twisting, lifting; avoid overhead lifting; no lifting greater than 10 pounds 5. Take medications as prescribed 6. Do not soak in tub Discharge Disposition: HOME SELF-CARE <Branden Galindo - Last Filed: 08/12/21 14:30> Providers Date of admission: 08/11/21 14:22 Attending physician: Branden Galindo Consults: 08/10/21 11:35 Consult Physician Routine Consulting Provider: Mg Kahn Consult Reason/Comments: Medical management Do you want consulting provider notified?: Yes 08/10/21 20:57 Consult Physician Routine Consulting Provider: Lauryn Villalpando Consult Reason/Comments: medical management Do you want consulting provider notified?: Already Contacted Primary care physician: Mg Kahn
[2021-08-12 14:43] VITALS: BP 133/81; PULSE 80; RESP 17; TEMP 97.9
== END 2021-08-12 15:55 | disposition home or self-care (01) ==
LOC: OR 06:16 → 5NMEDONC 11:31 → OR 08-11 15:08
PROVIDERS: ADMIT Orthopaedic Surgery Orthopaedic Surgery of the Spine; ATTEND Orthopaedic Surgery Orthopaedic Surgery of the Spine
DX: M43.16 Spondylolisthesis, lumbar region (principal); M48.061 Spinal stenosis, lumbar region without neurogenic claudication; M54.16 Radiculopathy, lumbar region; J45.20 Mild intermittent asthma, uncomplicated; Z20.822 Contact with and (suspected) exposure to COVID-19; E55.9 Vitamin D deficiency, unspecified; E78.5 Hyperlipidemia, unspecified; F41.1 Generalized anxiety disorder; I10 Essential (primary) hypertension; I25.2 Old myocardial infarction; Z79.51 Long term (current) use of inhaled steroids; Z79.899 Other long term (current) drug therapy; Z80.0 Family history of malignant neoplasm of digestive organs; Z82.3 Family history of stroke; Z82.49 Family history of ischemic heart disease and other diseases of the circulatory system; Z83.3 Family history of diabetes mellitus; Z86.73 Personal history of transient ischemic attack (TIA), and cerebral infarction without residual deficits; Z87.891 Personal history of nicotine dependence; Z96.642 Presence of left artificial hip joint
CPT/HCPCS: 22630; 20939; 94640 ×3; 97530; 97162; 86900; 86901; 80053; 80048; 85025 ×2; 85610; 85730; 86850; 81001; 87070; 87635; 72100; G0378 ×2; C1713; C1762; J2250; J1200; J2710; J0690 ×2; J2405; J2001; J3010; J1170 ×3; J2370; J0330; J2704

== ENCOUNTER → 2023-01-31 | Outpatient (CLI) | payer MEDICARE ==
[2023-01-31 16:43] LABS: African American GFR (CKD) 102.3 (60.0-200.0); Anion Gap 13.2 mmol/L (10.00-18.00); Blood Urea Nitrogen 16.4 mg/dL (9.0-27.0); Carbon Dioxide 23.2 mmol/L (20.0-27.5); Non-African American GFR(CKD) 88.3 (60.0-200.0); Potassium 4.1 mmol/L (3.5-5.5)
[2023-01-31 16:47] LABS: HCT 41.3 % (37.2-46.3); HGB 13.6 g/dL (12.0-15.0); MCH 28.9 pg (27.0-32.0); MCHC 32.9 g/dL (32.0-37.0); MCV 87.9 fL (80.0-97.0); Mean Platelet Volume 11.4 fL (9.5-12.2); NRBC Per 100 WBC 0 /100 WBCS (0.0-0.0); Platelet Count 242 X 10*3/uL (140-440); RDW 12.1 % (11.5-14.5); WBC 5.21 X 10*3/uL (4.50-10.00)
== END | disposition home or self-care (01) ==
LOC: LABPAT 10:45
PROVIDERS: ATTEND Internal Medicine Clinical Cardiac Electrophysiology
DX: Z01.812 Encounter for preprocedural laboratory examination (principal); I47.1 Supraventricular tachycardia
CPT/HCPCS: 80051; 82565; 84520; 85027

== ENCOUNTER 2023-02-21 08:24 | Day surgery (SDC) | payer MEDICARE ==
[2023-02-21] MEDS: SODIUM CHLORIDE 0.9% 1,000 ML IV SCH (08:50)
[2023-02-21] MEDS ORDERED: ATROPINE SULFATE 0.4 MG/ML 1 ML VIAL ONE (09:16)
[2023-02-21] MEDS ORDERED: MIDAZOLAM 2 MG/2 ML VIAL ONE ×2 (09:16→17:12)
[2023-02-21] MEDS ORDERED: fentaNYL (PF) 50 MCG/ML 2 ML AMP ONE ×2 (09:16→17:12)
[2023-02-21] MEDS ORDERED: PROPOFOL 10 MG/ML 20 ML VIAL IV ONE ×2 (09:16→17:12)
[2023-02-21] MEDS ORDERED: LIDOCAINE 1% INJ 10MG/ML (20 ML MDV) ONE ×2 (09:26→10:06)
[2023-02-21] MEDS ORDERED: LIDOCAINE 1% INJ 10MG/ML (20 ML MDV) SQ ONE ×2 (09:51→10:07)
[2023-02-21] MEDS ORDERED: ceFAZolin 1,000 MG in SODIUM CHLORIDE 0.9% IRRIG BTL 250 ML IRRIGATION ONE (11:39)
[2023-02-21] MEDS ORDERED: VANCOMYCIN 1,250 MG in SODIUM CHLORIDE 0.9% 250 ML IVPB ONE (11:41)
[2023-02-21] MEDS ORDERED: HEPARIN SODIUM (1,000 UNIT/ML) 1,000 UNIT in SODIUM CHLORIDE 0.9% 1,000 ML IRRIGATION ONE (11:55)
[2023-02-21] MEDS ORDERED: ACETAMINOPHEN TAB 325 MG TAB PO PRN ×2 (12:06→17:36)
[2023-02-21] MEDS ORDERED: SODIUM CHLORIDE 0.9% 1,000 ML IV SCH ×2 (12:15)
--- NOTE | 2023-02-21 12:18 | P.HPCAR ---
History of Present Illness This is Dr. Trujillo dictating an H/P on this patient The patient was interviewed and examined IMPRESSION / ASSESSMENT: Recurrent presyncope Recurrent palpitations History of TIA with PFO closure History of hypertension dyslipidemia Normal TSH Regular alcohol use as well as marijuana use PLAN: Diagnostic EP study for evaluation of recurrent near syncope and SVT/left-sided atrial tachycardia Evaluation of the ASD closure device and fossa ovalis to see if there is room for placement of a sheath across the fossa ovalis for left atrial mapping HPI Patient continues to have recurrent palpitations. She went to the emergency room a few days back to [facility] for recurrent palpitations once again She also complains of recurrent near syncope She also complains of shortness of breath and is being treated for asthma ROS: No fever chills or rigors, no cough, phlegm or expectoration, no nausea, vomiting or diarrhea, no hematuria, dysuria, no musculoskeletal complaints, no strokes or seizures, no skin lesions. EXAMINATION: Afebrile 98F pulse rate in 80s Heart sounds S1 and S2 are normal no murmurs or gallops Breath sounds are clear no rhonchi no crackles No lower extremity edema REVIEW OF LABS, ECG & MEDICAL DATA ALLERGY to Hibiclens, chlorhexidine, hydrocodone and adhesive tape Currently on metoprolol tartrate 100 mg twice daily Singulair, atorvastatin Physical Exam Vitals: Vital Signs Temp Pulse Resp BP BP Pulse Ox 02/21/23 08:48 98 F 81 18 158/87 156/90 98 Intake and Output 02/20/23 02/21/23 02/21/23 22:59 06:59 14:59 Intake Total 387 Balance 387 Intake: IV 387 Other: Weight 91 kg Past Medical History Past Medical History: Asthma, COPD, CVA/TIA, GERD/Reflux, Hyperlipidemia, Hypertension Additional Past Medical History / Comment(s): See Dr. Trujillo's H&P. hx of TIA's, SVT's, palpitations, stomach ulcer as teen, UTI. Last Myocardial Infarction Date:: unknown History of Any Multi-Drug Resistant Organisms: None Reported Past Surgical History: Back Surgery, Ear Surgery, Heart Catheterization, Joint Replacement, Orthopedic Surgery Additional Past Surgical History / Comment(s): MUMTAZ, PFO CLOSURE, CAVAZOS'S NEUROMA REMOVED RT FOOT, SINUS SX, TUBES IN EARS, LUNG BX, TOTAL L HIP, LOW BACK SURGERY, D&C. Past Anesthesia/Blood Transfusion Reactions: Postoperative Nausea & Vomiting (PONV) Additional Past Anesthesia/Blood Transfusion Reaction / Comment(s): Sister stopped breathing during a surgery-not sure why-she had lots of health problems per pt. Smoking Status: Former smoker - Past Family History Mother Family Medical History: Cancer, Osteoarthritis (OA) Additional Family Medical History / Comment(s): COLON Sister(s) Family Medical History: Deep Vein Thrombosis (DVT), Myocardial Infarction (LA), Pulmonary Embolus Additional Family Medical History / Comment(s): at age 67yrs Physical Examination Vital Signs Temp Pulse Resp BP BP Pulse Ox 02/21/23 08:48 98 F 81 18 158/87 156/90 98 Intake and Output 02/20/23 02/21/23 02/21/23 22:59 06:59 14:59 Intake Total 387 Balance 387 Intake: IV 387 Other: Weight 91 kg Results Current Medications Generic Name Dose Route Start Last Admin Trade Name Freq PRN Reason Stop Dose Admin Acetaminophen 650 mg 02/21/23 12:06 Acetaminophen Tab 325 Mg Tab PO 03/23/23 12:07 Q6HR PRN Mild Pain (Scale 1 to 3) Sodium Chloride 1,000 mls @ 50 mls/hr 02/21/23 06:05 02/21/23 08:50 Saline 0.9% IV 03/23/23 06:06 320 mls .Q20H KHANH Administration Vancomycin HCl 1,250 mg/ 250 mls @ 125 mls/hr 02/21/23 11:41 Sodium Chloride IVPB 02/21/23 13:40 ONCE ONE Protocol Sodium Chloride 1,000 mls @ 50 mls/hr 02/21/23 12:15 Saline 0.9% IV 03/23/23 12:16 .Q20H KHANH Sodium Chloride 1,000 mls @ 50 mls/hr 02/21/23 12:15 Saline 0.9% IV 03/23/23 12:16 .Q20H KHANH Sodium Chloride 12 ml 02/21/23 12:06 Sodium Chloride 0.9% Flush 10 Ml Syringe IV 03/23/23 12:07 Q12HR PRN Line Flush Intake and Output 02/20/23 02/21/23 02/21/23 22:59 06:59 14:59 Intake Total 387 Balance 387 Intake: IV 387 Other: Weight 91 kg Patient Weight 02/22/23 06:59 Weight 91 kg
--- NOTE | 2023-02-21 16:39 | P.EPPROC ---
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 During ventricular extra stimulation retrograde conduction in the atria was associated with a retrograde VH interval of greater than 255 ms Spontaneous appearance of paroxysmal AV block with pauses up to 11-12 seconds during EP study, unprovoked. No incriminating medications or reversible causes Intracardiac echo to evaluate the be a full closure device and the size of the residual fossa ovalis: Stable device in the fossa ovalis, 4.5 mm fossa ovalis adjacent to the inferior limbus Details Patient was brought to the EP lab in a fasting state. Written informed consent was obtained prior to the procedure. Conscious sedation provided by anesthesia. Venous sheaths were placed in the right left femoral veins and diabetes diagnostic catheters were placed in the right heart. Intracardiac echo catheter was placed The interatrial septum was evaluated. A PFO closure device is noted in stable position. There was a small residual fossa ovalis visible near the lower limbus of about 4.5 mm Sinus cycle length 806 ms, IA interval 168 ms, QRS 106 ms and QT 397 ms AH 89 and HV 38 ms Sinus node recovery times at 600, 540 ms were 958, 1023 and 1008 ms. Corresponding corrected to sinus recovery times were withi pacing revealed leroy response With catheter manipulation in the septal area SVT was induced with short septal times A VAAV response was noted with ventricular pacing and a long post-pacing interval noted Atrial extra stimulation performed from the high right atrium from the coronary sinus. Burst stimulation was performed Retrograde conduction was midline and decremental with VA Wenckebach block at 320 ms With ventricular extra stimulation, along retrograde conduction interval was noted. The retrograde V-H interval became progressively longer beyond 255 ms The TOLEDO interval was normal Following that a long sheath was placed and mapping cath was placed in the IVC in preparation for slow pathway ablation However before we can start mapping of the slow pathway there was a sudden appearance of paroxysmal AV block which appeared infranodal with long pauses The patient was lightly sedated at this time At this point a decision was made not to proceed with ablation. Patient is given IV atropine AV conduction resumed along the slow pathway and then later gradually improved to antegrade conduction along the fast pathway Atrial pacing was performed at that time on atropine The decision was made to place the TVP and transseptal patient to the TSU for further monitoring and a discussion regarding permanent pacemaker Radiofrequency ablation was withheld and was deferred until 2 months after bone pacemaker implantation
--- NOTE | 2023-02-21 16:43 | P.PCN ---
Preoperative Diagnosis: Transvenous temporary pacing procedure Indication for the procedure: Severe underlying bradycardia Patient was brought to the EP lab in a fasting state for the EP study. A 7- Upper Sorbian sheath was already placed in the right femoral vein. Via this, a temporary pacing catheter was placed in the right ventricle. Thresholds were interrogated. Threshold of less than 0.5 mA Patient transferred back to the cardiac holding area for discussion regarding need for permanent pacemaker At a later time the patient was brought to the EP lab once again, for permanent pacemaker implantation At the end of the entire procedure, the TVP was removed. The sheath was removed and hemostasis was assured. Patient tolerated the procedure well without any acute complications. Procedure performed Transvenous temporary pacing placement for management of intermittent, paroxysmal infranodal AV block with long pauses up to 12 seconds without provocation or any reversible causes Diagnostic EP study revealed abnormal infranodal conduction is revealed with ventricular extra stimulation and manifested as a long retrograde VH interval with ventricular extra stimulation, normal TOLEDO interval
[2023-02-21] MEDS ORDERED: IV FLUID CONTINUATION 1,000 ML IV ONE (17:12)
[2023-02-21] MEDS ORDERED: IOPAMIDOL-370 100ML BTL INJ ONE ×2 (17:36)
[2023-02-21] MEDS ORDERED: LIDOCAINE 1% INJ 10MG/ML (30 ML VIAL-PF) SQ ONE (17:57)
--- NOTE | 2023-02-21 18:21 | CA ---
Transthoracic Echo Report Name: Yvette Frankel Age: 63 Gender: F : 1960 Exam Date: 02/21/2023 12:49 Exam Location: [facility] Ht (in): 64 Wt (lb): 200 Ordering Physician: Felix Trujillo MD ([id number]) Attending/Referring Phys: Felix Trujillo MD ([id number]) Weighing Station Operator Jesika Gunn RDCS Procedure CPT: Indications: Recurrent syncope, paroxysmal AV block Cardiac Hx: Technical Quality: Fair Contrast 1: Total Dose (mL): Contrast 2: Total Dose (mL): MEASUREMENTS (Male / Female) Normal Values 2D ECHO LV Diastolic Diameter PLAX 4.0 cm 4.2 - 5.9 / 3.9 - 5.3 cm LV Systolic Diameter PLAX 2.7 cm IVS Diastolic Thickness 1.6 cm 0.6 - 1.0 / 0.6 - 0.9 cm LVPW Diastolic Thickness 1.5 cm 0.6 - 1.0 / 0.6 - 0.9 cm LV Relative Wall Thickness 0.8 RV Internal Dim ED PLAX 3.9 cm LA Volume 49.0 cm??? 18 - 58 / 22 - 52 cm??? M-MODE Aortic Root Diameter MM 2.2 cm LA Systolic Diameter MM 3.6 cm LA Ao Ratio MM 1.6 AV Cusp Separation MM 1.7 cm DOPPLER AV Peak Velocity 149.2 cm/s AV Peak Gradient 8.9 mmHg AV Mean Velocity 106.2 cm/s AV Mean Gradient 4.9 mmHg AV Velocity Time Integral 25.1 cm LVOT Peak Velocity 85.7 cm/s LVOT Peak Gradient 2.9 mmHg LVOT Velocity Time Integral 15.6 cm MV Area PHT 4.6 cm??? Mitral E Point Velocity 100.3 cm/s Mitral A Point Velocity 0.8 cm/s Mitral E to A Ratio 119.5 MV Deceleration Time 165.0 ms TR Peak Velocity 234.1 cm/s TR Peak Gradient 21.9 mmHg Right Ventricular Systolic Press 26.6 mmHg FINDINGS Left Ventricle Moderately increased left ventricular wall thickness. Left ventricular cavity size normal. Normal left ventricular systolic function with no obvious regional wall motion abnormalities. Left ventricular ejection fraction is estimated at 55-60 %. Right Ventricle Mild right ventricular dilatation. Right ventricular systolic pressure within normal limits. Right Atrium Normal right atrial size. Left Atrium Normal left atrial size. Mitral Valve Structurally normal mitral valve. No mitral stenosis. Trace to mild mitral regurgitation. Aortic Valve Trileaflet aortic valve. No aortic valve stenosis or regurgitation. Tricuspid Valve Structurally normal tricuspid valve. Mild tricuspid regurgitation. Pulmonic Valve Structurally normal pulmonic valve. Pericardium No pericardial effusion. Aorta Normal size aortic root and proximal ascending aorta. CONCLUSIONS 1. Normal left ventricle size and systolic function 2. Trace to mild mitral with mild tricuspid regurgitation 3. No pericardial effusion Previewed by: Dr. Vic Mckeon MD (Electronically Signed) Final Date: 21 Feb 2023 18:20
--- NOTE | 2023-02-21 19:09 | P.EPPROC ---
- EP Procedure Note Electrophysiology Procedure Note: Diagnosis Recurrent syncope Infranodal disease noted at EP study Sudden paroxysmal AV block with pauses up to 12 seconds, spontaneous, without any provocation noted at EP study No triggering or exacerbating factors, off all AV leroy blocking drugs for the last 72 hours Procedure Dual-chamber pacemaker implantation in the left upper extremity venogram Details Patient was brought to the EP lab in a fasting state. Written informed consent was obtained prior to the procedure. Conscious sedation provided. Left upper extremity venogram performed 15 mL IV dye injected in the left upper extremity. Patent left axillary and subclavian venous system. IV antibiotics administered. Local anesthesia administered. A 4 cm incision made in the pectoral area. Subfascial pocket made. Venous accesses obtained Venous sheaths placed. Leads placed in the right heart Atrial lead position the right atrial appendage. [employer] medical model #2088 TC, active fix lead. P waves 2.2 mV, pacing impedance 530 ohms and pacing threshold 0.75 V at 0.4 ms RV lead position in the RV apex. [employer] medical active fix lead model #2088 TC, 50 cm length. RA is greater than 12 mV, pacing threshold 0.75 V at 0.4 ms and pacing impedance of 900 ohms Device actuarial internship: [employer], Assurity MRI model #2272 pacemaker implanted Dual-chamber pacemaker device connected to the leads and placed in the subfascial pocket Patient tolerated the procedure well without acute complications Pacemaker programming DDD 50 VAP mode turned on to minimize RV pacing Plan Start calcium channel blockers, diltiazem long-acting, for management of recurrent SVT, AVNRT After 2 months proceed with slow pathway ablation
--- NOTE | 2023-02-21 19:19 | P.PRLE ---
RE: Yvette Frankel Dear Dr. Misty Manzanokayla Dhaliwal has recurrent episodes of syncope and presyncope, sometimes associated with palpitations She has documented narrow complex supraventricular tachycardia on EKG is an event monitors She was brought in for diagnostic EP study for evaluation of syncope and SVT. AV leroy reentrant tachycardia was very easily inducible with catheter sarah pulation However during ventricular extra stimulation to test for SVT induction, a very prolonged conduction time was noted from the right ventricle to the His bundle consistent with infrahisian/bundle disease disease Later during the EP study, she spontaneously had paroxysmal AV block, (infranodal) with pauses up to 12 seconds. This is completely unprovoked Therefore radiofrequency ablation of the slow pathway was deferred until 2 months and instead a dual-chamber pacemaker was implanted for management of paroxysmal AV block She also has asthma and I'll discontinue metoprolol and switched her to diltiazem CD 240 mg by mouth daily After 2-3 months once the pacemaker heels I will bring her back for and ablation of the slow pathway Thank you for entrusting me with the care of the patient Warm regards Sincerely Felix Trujillo
[2023-02-21] MEDS ORDERED: ALBUTEROL NEBULIZED 2.5 MG/3 ML INHALATION PRN (19:26)
[2023-02-21] MEDS ORDERED: ALPRAZolam 0.25 MG TAB PO PRN (19:26)
[2023-02-21] MEDS ORDERED: FLUTICASONE 50MCG/SPRAY NASAL 16GM NASAL PRN (19:26)
[2023-02-21] MEDS ORDERED: ACETAMINOPHEN IV (For NPO) 1,000 MG in EMPTY BAG 1 BAG IVPB ONE (19:30)
[2023-02-21] MEDS: DILTIAZEM CD 240 MG CAP.ER.24H PO SCH (20:30)
[2023-02-21 20:57] LABS: Basophils % (A) 0 %; Eosinophils % (A) 0 %; HCT 39.6 % (34.0-46.0); HGB 12.7 gm/dL (11.4-16.0); Lymphocytes # (A) 0.8 k/uL (1.0-4.8); Lymphocytes % (A) 12 %; MCH 28.6 pg (25.0-35.0); MCHC 32.1 g/dL (31.0-37.0); MCV 89.1 fL (80.0-100.0); Mean Platelet Volume 8.9; Monocytes # (A) 0.3 k/uL (0-1.0); Monocytes % (A) 5 %; Neutrophils # (A) 5.1 k/uL (1.3-7.7); Neutrophils % (A) 81 %; Platelet Count 191 k/uL (150-450); RBC 4.45 m/uL (3.80-5.40); RDW 12.2 % (11.5-15.5); WBC 6.2 k/uL (3.8-10.6)
[2023-02-21 21:11] LABS: ALT 18 U/L (4-34); AST 20 U/L (14-36); African American GFR (CKD) >90 (>60 ml/min/1.73 sqM); Albumin 3.7 g/dL (3.5-5.0); Alkaline Phosphatase 85 U/L (38-126); Anion Gap 10 mmol/L; Blood Urea Nitrogen 10 mg/dL (7-17); C Reactive Protein <0.5 mg/dL (<1.0); Calcium 8.5 mg/dL (8.4-10.2); Carbon Dioxide 21 mmol/L (22-30); Chloride 108 mmol/L (98-107); Glucose 120 mg/dL (74-99); Non-African American GFR(CKD) >90 (>60 ml/min/1.73 sqM); Potassium 4.3 mmol/L (3.5-5.1); Sodium 139 mmol/L (137-145); Total Bilirubin 0.5 mg/dL (0.2-1.3); Total Protein 5.9 g/dL (6.3-8.2)
[2023-02-22] MEDS: SODIUM CHLORIDE 0.9% 1,000 ML IV SCH (02:25)
[2023-02-22] MEDS ORDERED: ceFAZolin 1 GM in SODIUM CHLORIDE 0.9% IRRIG BTL 250 ML IRRIGATION PRN (07:00)
--- NOTE | 2023-02-22 08:35 | XR ---
EXAMINATION TYPE: XR chest 2V DATE OF EXAM: 02/22/2023 7:35 AM COMPARISON: Chest radiographs from 07/31/2021 TECHNIQUE: XR chest 2V Frontal and lateral views of the chest. CLINICAL INDICATION:Female, 63 years old with history of Lead placement check; FINDINGS: Lungs/Pleura: There is no evidence of pleural effusion, focal consolidation, or pneumothorax. Pulmonary vascularity: Unremarkable. Heart/mediastinum: Cardiomediastinal silhouette is unremarkable. Two lead cardiac conduction device o verlying the left hemithorax with lead tips projecting over the right ventricle and right atrium. Musculoskeletal: No acute osseous pathology. IMPRESSION: 1. No acute cardiopulmonary disease/process. 2. Left cardiac conduction device with leads in appropriate position.
[2023-02-22] MEDS: DILTIAZEM CD 240 MG CAP.ER.24H PO SCH (08:43)
[2023-02-22] MEDS ORDERED: ATORVASTATIN 20 MG TAB PO SCH (09:00)
[2023-02-22 13:30] VITALS: BP 115/80; PULSE 70; RESP 15; TEMP 97.9
== END 2023-02-22 13:43 | disposition home or self-care (01) ==
LOC: CATHEP 08:24 → 6NMEDSUR 19:04 → CATHEP 02-22 13:43
PROVIDERS: ATTEND Internal Medicine Clinical Cardiac Electrophysiology
DX: I47.1 Supraventricular tachycardia (principal); I44.39 Other atrioventricular block; I44.1 Atrioventricular block, second degree; I36.1 Nonrheumatic tricuspid (valve) insufficiency; J44.9 Chronic obstructive pulmonary disease, unspecified; Z86.73 Personal history of transient ischemic attack (TIA), and cerebral infarction without residual deficits; I10 Essential (primary) hypertension; E78.5 Hyperlipidemia, unspecified; F10.20 Alcohol dependence, uncomplicated; F12.90 Cannabis use, unspecified, uncomplicated; Z91.048 Other nonmedicinal substance allergy status; Z88.5 Allergy status to narcotic agent; Z88.8 Allergy status to other drugs, medicaments and biological substances; K21.9 Gastro-esophageal reflux disease without esophagitis; Z87.11 Personal history of peptic ulcer disease; I25.2 Old myocardial infarction; Z87.440 Personal history of urinary (tract) infections; Z87.891 Personal history of nicotine dependence; Z82.49 Family history of ischemic heart disease and other diseases of the circulatory system; Z80.0 Family history of malignant neoplasm of digestive organs
CPT/HCPCS: 93653; 33208; 93306; 80053; 82164; 85025; 86140; 71046; C1769 ×3; C1894; C1760; C1730 ×3; C1892; C1898; C1759; C1893; C1732; C1785; J3370; J0690 ×3; J2001 ×2; J1644; J0131; Q9967; 33210; 93662

== ENCOUNTER → 2023-04-28 | Outpatient (CLI) | payer MEDICARE ==
[2023-04-28 16:29] LABS: Blood Urea Nitrogen 10.9 mg/dL (9.0-27.0); Carbon Dioxide 25.6 mmol/L (21.6-31.8); Chloride 107 mmol/L (96-109); Potassium 4.2 mmol/L (3.5-5.5); Sodium 144 mmol/L (135-145)
[2023-04-28 16:32] LABS: HCT 43.6 % (37.2-46.3); HGB 13.4 d/dL (12.0-15.0); MCH 27.5 pg (27.0-32.0); MCHC 30.7 d/dL (32.0-37.0); MCV 89.3 FL (80.0-97.0); Mean Platelet Volume 11.4 FL (9.5-12.2); NRBC Per 100 WBC 0 X 10*3/uL (0.00-0.01); Platelet Count 216 X 10*3/uL (140-440); RBC 4.88 X 10*6/uL (4.10-5.20); WBC 4.74 X 10*3/uL (4.50-10.00)
== END | disposition home or self-care (01) ==
LOC: LABWHC1 08:57
PROVIDERS: ATTEND Internal Medicine Clinical Cardiac Electrophysiology
DX: Z01.812 Encounter for preprocedural laboratory examination (principal); I47.1 Supraventricular tachycardia
CPT/HCPCS: 36415; 80051; 82565; 84520; 85027

== ENCOUNTER 2023-05-09 09:43 | Day surgery (SDC) | payer MEDICARE ==
[~2023-05-09 09:43] MED LIST changes: -DEXAMETHASONE SOD PHOSPHATE 4 MG/ML 1 ML VIAL IV ONE; -MIDAZOLAM 2 MG/2 ML VIAL IV PRN; -ONDANSETRON 4 MG/2 ML VIAL IVP ONE; -ceFAZolin 1,000 MG in SODIUM CHLORIDE 0.9% IRRIGATIO 1,000 ML IRRIGATION PRN
[2023-05-09] MEDS ORDERED: SODIUM CHLORIDE 0.9% 1,000 ML IV ONE (10:17)
[2023-05-09] MEDS ORDERED: fentaNYL (PF) 50 MCG/ML 2 ML AMP ONE (11:50)
[2023-05-09] MEDS ORDERED: ISOPROTERENOL 250 MCG/1.25 ML SYR IV ONE (11:50)
[2023-05-09] MEDS ORDERED: PROPOFOL 10 MG/ML 20 ML VIAL IV ONE (11:50)
[2023-05-09] MEDS ORDERED: MIDAZOLAM 2 MG/2 ML VIAL ONE (11:50)
[2023-05-09] MEDS ORDERED: HYDROmorphone (PF) 1 MG/ML ONE (11:50)
[2023-05-09] MEDS ORDERED: diphenhydrAMINE 50 MG/ML 1 ML VIAL ONE (11:50)
[2023-05-09] MEDS ORDERED: LIDOCAINE 1% INJ 10MG/ML (20 ML MDV) ONE (12:06)
[2023-05-09] MEDS ORDERED: LIDOCAINE 1% INJ 10MG/ML (20 ML MDV) SQ ONE (12:28)
[2023-05-09] MEDS ORDERED: HEPARIN SODIUM (1,000 UNIT/ML) 1,000 UNIT in SODIUM CHLORIDE 0.9% 1,000 ML IRRIGATION ONE (13:00)
[2023-05-09] MEDS ORDERED: FLUTICASONE 50MCG/SPRAY NASAL 16GM NASAL PRN (14:00)
[2023-05-09] MEDS ORDERED: ALBUTEROL NEBULIZED 2.5 MG/3 ML INHALATION PRN (14:00)
[2023-05-09] MEDS ORDERED: ALBUTEROL HFA INHALER INHALATION PRN (14:00)
[2023-05-09] MEDS ORDERED: ALPRAZolam 0.25 MG TAB PO PRN (14:00)
[2023-05-09] MEDS ORDERED: ACETAMINOPHEN TAB 325 MG TAB PO PRN (14:03)
[2023-05-09] MEDS ORDERED: ACETAMINOPHEN IV (For NPO) 1,000 MG in EMPTY BAG 1 BAG IVPB ONE (14:03)
[2023-05-09] MEDS ORDERED: MECLIZINE 25 MG TAB PO PRN (14:05)
--- NOTE | 2023-05-09 14:11 | P.EPPROC ---
- EP Procedure Note Electrophysiology Procedure Note: Diagnosis Recurrent SVT, AV leroy reentry, symptomatic despite diltiazem 140 g by mouth daily Paroxysmal, infrahisian AV block status post dual-chamber pacemaker in the past Hypertension History of ASD closure, percutaneous Final diagnosis AV node reentrant tachycardia Successful slow pathway ablation with junctional rhythm during RF applications No evidence for slow pathway conduction at the end of the procedure SVT rendered noninducible but on her off Isuprel Details Patient was brought to the EP lab in a fasting state. Written informed consent was obtained prior to procedure. Venous sheaths were placed in the right and left femoral veins and diagnostic catheters were positioned in the RV, Hernan sinus, His bundle area and hadn't atrium. Sinus cycle length 680 ms, SC interval 168 ms, QRS 160 ms and QT 360 ms 873 any HV 48 ms Chest seizures pacemaker. Cine fluoroscopy of the leads is performed before starting the procedure and at the end of the procedure. Leads are stable The pacemaker was reprogrammed to VVI 40 beats a minute At the end of the procedure the pacemaker was interrogated. Pacemaker interrogation is normal at the end of the procedure Diagnostic EP study is performed with pacing from the Hernan sinus and the right ventricle SVT was easily inducible SVT was consistent with AV leroy reentry Slow pathway conduction properties were defined A long sheath was placed with an RF ablation catheter. Irrigated tip. Mapping of the slow pathway was performed just outside the os of the Hernan sinus and just anterior to it The His bundle Klauber standpoint Hernan sinus os at this floor and [employer] history professor time RF ablation was applied in the region of the slow pathway Junctional rhythm was obtained. Could contact for some good power in upper 40 W was used There is complete lamination of the slow pathway Following that no further junctional beats were noted Antegrade conduction remained intact SC interval remained stable Following that a diagnostic EP study was performed on and off Isuprel High-dose Isuprel used Diagnostic EP study revealed no evidence for AV node reentry and no evidence for antegrade slow pathway conduction No other arrhythmias were induced Patient tolerated the procedure well without any acute complications. The puncture sites was sealed after removing catheters and sheaths Pacemaker was interrogated. [employer] medical pacemaker Atrial pacing threshold 0.5 V at 0.4 ms, P waves greater than 5 mV pacing impedance 450 ohms RV threshold 1.2 V at 0.4 ms, R waves greater than 12 mV and pacing impedance 460 ohms Pacing was reprogrammed to DDD 50 PPM with VIP mode turned on
--- NOTE | 2023-05-09 14:16 | P.PRLE ---
RE: Yvette Frankel Dear Yvette Swann underwent a diagnostic EP study followed by a successful. Frequency ablation of the slow pathway for management of AV node reentry. The tachycardia was rendered noninducible Her dual-chamber pacemaker is functioning normally and it was implanted for paroxysmal, spontaneous, infrahisian AV block was noted previously I have stopped diltiazem completely and switch to valsartan 160 mg by mouth daily for hypertension management Thank you for entrusting me with the care of the patient Warm regards Sincerely Felix Trujillo
[2023-05-09] MEDS: LACTATED RINGERS 1,000 ML IV SCH (14:56)
[2023-05-09] MEDS: SODIUM CHLORIDE 0.9% 1,000 ML IV SCH (14:57)
[2023-05-09] MEDS: FAMOTIDINE 20 MG TAB PO SCH (18:02)
[2023-05-09] MEDS: VALSARTAN 160 MG TAB PO SCH (18:02)
[2023-05-09] MEDS ORDERED: ATORVASTATIN 20 MG TAB PO SCH (21:00)
[2023-05-09 21:52] LABS: BUN/Creat Ratio 13.57 Ratio (12.00-20.00); Blood Urea Nitrogen 9.5 mg/dL (9.0-27.0); Carbon Dioxide 20.4 mmol/L (21.6-31.8); Chloride 109 mmol/L (96-109); Chol/HDL Ratio 2.28 Ratio; Glucose 95 mg/dL (70-110); LDL Cholesterol,Calculated 91.1 mg/dL (0.0-131.0); Potassium 4.2 mmol/L (3.5-5.5); Sodium 141 mmol/L (135-145); VLDL Calculation 11.84 mg/dL (5.00-40.00)
[2023-05-10] MEDS: SODIUM CHLORIDE 0.9% 1,000 ML IV SCH (04:49)
[2023-05-10] MEDS: LACTATED RINGERS 1,000 ML IV SCH (04:49)
[2023-05-10 08:39] VITALS: BP 149/91; PULSE 81; RESP 16; TEMP 98.4
[2023-05-10] MEDS ORDERED: MONTELUKAST 10 MG TAB PO SCH (09:00)
[2023-05-10] MEDS: FAMOTIDINE 20 MG TAB PO SCH (09:10)
[2023-05-10] MEDS: VALSARTAN 160 MG TAB PO SCH (09:10)
--- NOTE | 2023-05-10 09:50 | P.DS ---
Providers Attending physician: Felix Trujillo Primary care physician: [facility] Course: This is a 63-year-old female who underwent SVT ablation. Postop day 1. Patient is doing well post-procedurally with no complications noted. Patient's vital signs are stable. The patient was deemed stable for discharge home today. Please see EMR for further hospital course details Discharge diagnosis AV node reentrant tachycardia, symptom Successful slow pathway ablation with junctional rhythm during RF applications No evidence for slow pathway conduction at the end of the procedure SVT rendered noninducible Previously implanted Dual-chamber pacemaker functioning normally, [facility] [facility] medical Nurse practitioner note has been reviewed by physician. Signing provider agrees with the documented findings, assessment, and plan of care. Plan - Discharge Summary Discharge Rx Participant: No New Discharge Prescriptions: New Valsartan 160 mg PO DAILY #90 tab Discontinued Diltiazem Cd [Cardizem CD] 240 mg PO DAILY #90 cap No Action Montelukast [Singulair] 10 mg PO QAM Cholecalciferol [Vitamin D3 (25 Mcg = 1000 Iu)] 5,000 unit PO QAM Famotidine [Pepcid] 20 mg PO BID #0 Atorvastatin [Lipitor] 20 mg PO Q48H Albuterol Sulfate [Proair Hfa] 1 - 2 puff INHALATION Q6HR PRN PRN Reason: Shortness Of Breath Meclizine [Antivert] 25 mg PO DIRECTED PRN PRN Reason: Vertigo Sennosides-Docusate Sodium [Senokot-S] 2 each PO DAILY PRN PRN Reason: Constipation Chlorpheniramine Maleate [Chlor-Trimeton] 4 mg PO HS PRN PRN Reason: Allergy Symptoms ALPRAZolam [Xanax] 0.25 mg PO BID PRN PRN Reason: Anxiety Albuterol Nebulized [Ventolin Nebulized] 2.5 mg INHALATION Q6H PRN PRN Reason: Shortness Of Breath Zinc 50 mg PO QAM Beclazone 2 inhalation PO BID Cyanocobalamin [Vitamin B-12] 500 mcg PO QAM Fluticasone Nasal [place] [Flonase Nasal [place]] 1 spray NASAL DAILY PRN PRN Reason: Allergy Symptoms Acetaminophen [Tylenol Arthritis] 650 mg PO DIRECTED PRN PRN Reason: Pain Discharge Medication List Cholecalciferol [Vitamin D3 (25 Mcg = 1000 Iu)] 5,000 unit PO QAM 02/01/19 [History] Famotidine [Pepcid] 20 mg PO BID #0 02/01/19 [History] Montelukast [Singulair] 10 mg PO QAM 02/01/19 [History] Atorvastatin [Lipitor] 20 mg PO Q48H 02/07/19 [History] Albuterol Nebulized [Ventolin Nebulized] 2.5 mg INHALATION Q6H PRN 01/26/21 [History] Albuterol Sulfate [Proair Hfa] 1 - 2 puff INHALATION Q6HR PRN 01/26/21 [History] Zinc 50 mg PO QAM 01/26/21 [History] Meclizine [Antivert] 25 mg PO DIRECTED PRN 08/06/21 [History] Sennosides-Docusate Sodium [Senokot-S] 2 each PO DAILY PRN 02/08/23 [History] Beclazone 2 inhalation PO BID 02/16/23 [History] Chlorpheniramine Maleate [Chlor-Trimeton] 4 mg PO HS PRN 02/16/23 [History] Cyanocobalamin [Vitamin B-12] 500 mcg PO QAM 02/16/23 [History] Fluticasone Nasal [place] [Flonase Nasal [place]] 1 spray NASAL DAILY PRN 02/16/23 [History] ALPRAZolam [Xanax] 0.25 mg PO BID PRN 05/04/23 [History] Acetaminophen [Tylenol Arthritis] 650 mg PO DIRECTED PRN 05/04/23 [History] Valsartan 160 mg PO DAILY #90 tab 05/09/23 [Rx] Follow up Appointment(s)/Referral(s): Felix Trujillo MD [STAFF PHYSICIAN] - 05/24/23 9:30 am (Follow-up with Dr. Trujillo/Bella Tovar in one to 2 weeks Stop diltiazem Start valsartan 160 mg by mouth daily hypertension management *Reminder* Device clinic appointment 05/19/23 @ 9:30) Mukesh Arevalo DO [STAFF PHYSICIAN] - 1 Week Patient Instructions/Handouts: Cardiac Ablation (DC) Activity/Diet/Wound Care/Special Instructions: Post EP study - Ablation instructions 1. Keep access sites dry for 2 days. 2. No heavy lifting or straining for 2 days. 3. Avoid bending the hips repeatedly for 2 days. 4. You may go up and down stairs slowly Call if the following is noted 1. Bleeding, increasing swelling or pain at the access sites. 2. Increasing chest discomfort, especially upon taking a deep breath. 3. Increasing shortness of breath, at rest or with exertion. 4. Undue cough / phlegm 5. Difficulty or pain while swallowing. 6. Pain or change in color in the extremities. 7. Fever, chills, rigors. 8. Increasing headache or neurologic symptoms. 9. Dizziness, fainting, palpitations Stop diltiazem Start valsartan 160 mg by mouth daily instead Discharge Disposition: HOME SELF-CARE
== END 2023-05-10 11:10 | disposition home or self-care (01) ==
LOC: CATHEP 09:43 → 6NMEDSUR 13:47 → CATHEP 05-10 11:10
PROVIDERS: ATTEND Internal Medicine Clinical Cardiac Electrophysiology
DX: I47.1 Supraventricular tachycardia (principal); I44.30 Unspecified atrioventricular block; I10 Essential (primary) hypertension; Z95.0 Presence of cardiac pacemaker; E78.5 Hyperlipidemia, unspecified; J44.9 Chronic obstructive pulmonary disease, unspecified; D86.9 Sarcoidosis, unspecified; K21.9 Gastro-esophageal reflux disease without esophagitis; M19.90 Unspecified osteoarthritis, unspecified site; Z86.73 Personal history of transient ischemic attack (TIA), and cerebral infarction without residual deficits; Z79.1 Long term (current) use of non-steroidal anti-inflammatories (NSAID); Z79.51 Long term (current) use of inhaled steroids; Z79.899 Other long term (current) drug therapy; Z91.048 Other nonmedicinal substance allergy status; Z88.5 Allergy status to narcotic agent; Z88.8 Allergy status to other drugs, medicaments and biological substances
CPT/HCPCS: 94640; 93653; 93623; 86900; 86901; 80048; 80061; 86850; 83036; C1894; C1769; C1760; C1730 ×3; C1893; C1732; J2250; J1200; J0690; J2001; J3010; J1644; J1170; J0131; J2704

== ENCOUNTER → 2023-09-08 | Outpatient (CLI) | payer MEDICARE ==
[2023-09-08 16:16] LABS: Blood Urea Nitrogen 19.8 mg/dL (9.0-27.0); Carbon Dioxide 25.2 mmol/L (21.6-31.8); Chloride 108 mmol/L (96-109); Potassium 5.2 mmol/L (3.5-5.5); Sodium 144 mmol/L (135-145)
[2023-09-08 16:35] LABS: HCT 44.1 % (37.2-46.3); HGB 14.1 g/dL (12.0-15.0); MCH 28.4 pg (27.0-32.0); MCV 88.7 FL (80.0-97.0); Mean Platelet Volume 12.2 FL (9.5-12.2); NRBC Per 100 WBC 0 X 10*3/uL (0.00-0.01); Platelet Count 238 X 10*3/uL (140-440); RBC 4.97 X 10*6/uL (4.10-5.20); RDW 12.6 % (11.5-14.5); WBC 5.71 X 10*3/uL (4.50-10.00)
== END | disposition home or self-care (01) ==
LOC: LABPAT 09:58
PROVIDERS: ATTEND Internal Medicine
DX: Z01.812 Encounter for preprocedural laboratory examination (principal); I25.10 Atherosclerotic heart disease of native coronary artery without angina pectoris; R06.02 Shortness of breath
CPT/HCPCS: 80051; 82565; 84520; 85027

== ENCOUNTER 2023-09-13 11:51 | Day surgery (SDC) | payer MEDICARE ==
[2023-09-09 16:33] VITALS: BMI 32.5
[~2023-09-13 11:51] MED LIST changes: +ALPRAZolam 0.25 MG TAB PO PRN; +ALPRAZolam 0.5 MG TAB PO PRN; +ASPIRIN 325 MG TAB PO STA; +ATORVASTATIN 80 MG TAB PO STA; +HEPARIN SODIUM,PORCINE (1 ML) 2,500 UNIT in SODIUM CHLORIDE 0.9% 250 ML IRRIGATION PRN; +HEPARIN SODIUM,PORCINE 10,000 UNIT in SODIUM CHLORIDE 0.9% 1,000 ML IRRIGATION PRN; -LIDOCAINE 1% (10MG/ML) FOR IV START INTRADERMA PRN; +NITROGLYCERIN SL TABS 0.4 MG TAB SUBLINGUAL PRN; +SODIUM CHLORIDE 0.9% 1,000 ML in EMPTY BAG 1 BAG IV SCH
[2023-09-13] MEDS ORDERED: SODIUM CHLORIDE 0.9% 1,000 ML IV ONE (12:28)
[2023-09-13 12:50] VITALS: RESP 16; TEMP 98.4
[2023-09-13] MEDS ORDERED: fentaNYL (PF) 50 MCG/ML 2 ML AMP ONE (13:10)
[2023-09-13] MEDS ORDERED: fentaNYL (PF) 50 MCG/1 ML VIAL IVP ONE (13:20)
[2023-09-13] MEDS ORDERED: LIDOCAINE 1% INJ 10MG/ML (5 ML VIAL-PF) SQ ONE (13:24)
[2023-09-13] MEDS ORDERED: MIDAZOLAM 2 MG/2 ML VIAL IVP ONE (13:28)
[2023-09-13] MEDS ORDERED: VERAPAMIL SYRINGE (5 MG/10 ML) INTRAARTER ONE (13:28)
[2023-09-13] MEDS ORDERED: HEPARIN SODIUM 1,000 UN/ML (10ML VL) IV ONE (13:29)
[2023-09-13] MEDS ORDERED: IOPAMIDOL-370 100ML BTL INJ ONE (13:34)
[2023-09-13 16:35] VITALS: BP 145/78; PULSE 75
--- NOTE | 2023-09-13 21:09 | P.CARDCATH ---
Description of Procedure: PROCEDURES PERFORMED: Left heart catheterization, bilateral coronary angiography, ultrasound guided arterial access INDICATION: Nonsustained ventricular tachycardia, chest pain, near syncope CONSENT:I have discussed the risks, benefits and alternative therapies for the above-mentioned procedure and for both sedation/analgesia as well as necessary blood product administration, if indicated, as they pertain to this patient. The patient has indicated understanding and acceptance of the risks and procedures discussed. PROCEDURE: After the risks, benefits and alternatives of the above mentioned procedure explained in detail with the patient, informed consent was obtained. Patient was taken to the catheterization lab and prepped and draped in usual fashion. Ultrasound guidance was used to assess for arterial access. 1% lidocaine was used to anesthetize the right radial artery. A 6-Tongan sheath was placed in the right radial artery using modified Seldinger technique and ultrasound guidance. Left coronary angiography was performed with a 5-Tongan JL 3.5 catheter and right coronary angiography was performed with a 5-Tongan JR5 catheter in various views. A 5-Tongan FR5 catheter was inserted into the left ventricle and pressure measurements were obtained. The right radial sheath was removed and a TR band was placed with hemostasis achieved. The patient tolerated the procedure well. Patient was transported back to the post catheterization holding area in stable condition. Conscious Sedation: Patient was monitored under the direct supervision of myself for conscious sedation using Versed and fentanyl for a total duration of 11 minutes HEMODYNAMICS: Aorta: 138/78 LV: 131/5, LVEDP 12 SELECTIVE CORONARY ARTERIOGRAPHY: LEFT MAIN: The left main is a large caliber vessel which bifurcates into the LAD and circumflex. There is no significant stenosis. LEFT ANTERIOR DESCENDING CORONARY ARTERY: LAD is a large caliber vessel which wraps around to the apex. There is no significant stenosis. LEFT CIRCUMFLEX CORONARY ARTERY: Left circumflex is a moderate caliber vessel without significant stenosis. RIGHT CORONARY ARTERY: The right coronary artery is a large caliber vessel which gives off a PDA and PLV branch and is the dominant vessel. There is no significant stenosis. FINAL IMPRESSION: 1. Normal coronary arteries as described above. 2. Normal left sided filling pressures PLAN: 1. Aggressive risk factor modification per most recent ACC/AHA guidelines. 2. Follow-up in the office in 1-2 weeks.
== END 2023-09-13 16:50 | disposition home or self-care (01) ==
LOC: CATHCVL 11:51
PROVIDERS: ATTEND Internal Medicine
DX: I47.20 Ventricular tachycardia, unspecified (principal); I25.10 Atherosclerotic heart disease of native coronary artery without angina pectoris; I10 Essential (primary) hypertension; E78.5 Hyperlipidemia, unspecified; J44.9 Chronic obstructive pulmonary disease, unspecified; Z86.73 Personal history of transient ischemic attack (TIA), and cerebral infarction without residual deficits; Z79.899 Other long term (current) drug therapy
CPT/HCPCS: 93458; 76937; C1769; C1894; J2250; J2001; J1644; Q9967; J3010